=== PATIENT | male | born 1985 | race Caucasian/White ===

== ENCOUNTER 2017-02-04 13:43 | Emergency (ER) | payer SELFPAY ==
[~2017-02-04 13:43] MED LIST: AGM875T PO; AMOX500C2 PO; BENZ100C8 PO; BENZ200C25 PO; CIPR500T4 PO; CODE-54 PO; CYCL10TA9 PO; DICY20TA10 PO; DOXY100C2 PO; ESCI5TAB PO; FAMO-119 PO; FLT05NA16 NSEACH; HYDR25CA PO; HYOS0.1283 SL; INDO25CA PO; METH-53 PO; NAPR-243 PO; NAPR250T34 PO; ONDA8TAB13 PO; PRD20T PO; PRX10T PO; SCR1T1 PO; TRAM-21 PO; TRAM50TA2 PO; TRM50T PO; TRZ100T PO
--- OUTSIDE RECORDS SUMMARY | 2017-02-04 13:48 | XMS REPORT | Continuity of Care Document ---
Author Author [facility] Organization [facility] Address Unknown Phone Unavailable Care Team Providers Care Wire Photo Operator Name Role Phone SJ MARTELL DO PCP Insurance Providers Payer Name Policy Number Subscriber Name Relationship Work Comp [id number] Ravindra Quevedo 19 Self / Same As Patient Advance Directives Directive Response Recorded Date/Time Advance Directives No 08/08/14 8:51am Health Care Power of Hog Sticker No 08/08/14 8:51am Organ Donor Yes 08/08/14 8:51am Resuscitation Status Full Code 08/08/14 8:51am Problems Medical Problems Problem Onset Date Status Abdominal pain Unknown Active Nausea and vomiting Unknown Active Diarrhea Unknown Active Dehydration Unknown Active SUICIDAL IDEATION AND ATTEMPT Unknown Active Alcohol intoxication Unknown Active Sinusitis Unknown Active Sinusitis Unknown Active Spasm of back muscles Unknown Active Back pain Unknown Active Medications Medication Dose Route Sig Days/Qty Instructions Order Date Discontinued Date Status Indomethacin 1 Each PO THREE TIMES A DAY PRN 14 Qty 11/03/10 08/04/13 Discontinued Amoxicillin 2 Each PO THREE TIMES A DAY 14 Days 01/14/12 08/04/13 Discontinued Naproxen 1 Each PO TWICE A DAY PRN 20 Qty 01/14/12 08/04/13 Discontinued Cyclobenzaprine HCl (Flexeril) 1 Each PO Q8HR PRN 15 Qty FOR MUSCLE SPASMS 06/18/13 08/04/13 Discontinued Naproxen 1 Each PO TID PRN 20 Qty 06/18/13 08/04/13 Discontinued Paroxetine HCl 10 Mg PO NEEDED 30 Qty 08/04/13 01/13/14 Discontinued Trazodone HCl 50 Mg PO NEEDED 08/04/13 01/13/14 Discontinued Tramadol HCl 50 Mg PO EVERY 6 HOURS PRN 10 Qty 08/04/13 01/13/14 Discontinued Naproxen 1 Each PO TID PRN 10 Qty 08/04/13 01/13/14 Discontinued Ondansetron 8 Mg PO EVERY 4HRS PRN NAUSEA/VOMITING 10 Qty 01/13/14 Discontinued Escitalopram Oxalate 1 Each PO BEDTIME 30 Days 02/03/14 02/10/14 Discontinued Dicyclomine Hcl 20 Mg PO THREE TIMES A DAY PRN ABDOMINAL PAIN 60 Qty 05/05/14 Discontinued Dicyclomine Hcl 20 Mg PO THREE TIMES A DAY 20 Qty 05/05/14 07/24/14 Discontinued Sucralfate 1 Gm PO FOUR TIMES DAILY 120 Qty TAKE BEFORE EACH MEAL AND AT BEDTIME FOR STOMACH 05/05/14 Active Amoxicillin/Clavulanate K 1 Tab PO TWICE A DAY 30 Qty 07/01/14 Discontinued Fluticasone Propionate 2 Sprays NSEACH DAILY 1 Qty 07/01/14 Active Benzonatate (Tessalon Perles) 1 Each PO THREE TIMES A DAY PRN COUGH 30 Qty 07/01/14 07/24/14 Discontinued Cyclobenzaprine HCl (Flexeril) 1 Each PO Q8HR PRN 15 Qty 07/24/14 Discontinued Naproxen 1 Each PO THREE TIMES A DAY PRN PAIN 20 Qty 07/24/14 Active Tramadol Hcl 50 Mg PO EVERY 4HRS 20 Qty 07/24/14 Active Methocarbamol 2 Each PO DIRECTED PRN SPASMS 40 Qty 08/08/14 Active Acetaminophen/Codeine Phosphate 1-2 Tab PO Q 4-6 HOURS PRN PAIN 24 Qty NEEDED FOR PAIN 08/08/14 Active Social History Social History Problem Response Recorded Date/Time Alcohol Use Occasionally Uses 08/08/2014 8:51am Recreational Drug Use No 08/08/2014 8:51am Recent Foreign Travel No 08/08/2014 8:51am Recent Infectious Disease Exposure No 08/08/2014 8:51am Hospitalization with Isolation Denies 08/08/2014 8:51am Smoking Status Never a Smoker 08/08/2014 8:51am Query Response Start Date Stop Date Smoking Status Never a Smoker Hospital Discharge Instructions No hospital discharge instructions. Plan of Care No plan of care. Functional Status No functional status results. Allergies, Adverse Reactions, Alerts Allergen Type Severity Reaction Status Last Updated No Known Drug Allergies Active 11/03/10 Immunizations No immunization records. Vital Signs Acute Vital Signs Vital Response Date/Time Temperature (Fahrenheit) 98.1 degrees F (97.6 - 99.5) Temperature (Calculated Celsius) 36.61186 degrees C (36.4 - 37.5) Temperature Source Temporal Pulse Rate (adult) 70 bpm (60 - 90) Respiratory Rate 18 bpm (12 - 24) O2 Sat by Pulse Oximetry 95 % (88 - 100) Blood Pressure 149/98 mm Hg Pain Pain Intensity 8 Height (Feet) 6 feet Height (Inches) 1 inches Height (Calculated Centimeters) 185.029384 cm Weight (Pounds) 165 pounds Weight (Ounces) 2.0 oz Weight (Calculated Grams) 71051.003 gm Weight (Calculated Kilograms) 74.421960 kilograms Calculated BMI 21.77 Results Test Source Date Result Interp. Ref. Range Comments Acetaminophen Level February 03, 2014 3:16am < 10 UG/ML L 10.0-30.0 Alanine Aminotransferase (ALT/SGPT) May 05, 2014 7:50pm 38 U/L N 30-65 Albumin May 05, 2014 7:50pm 4.4 G/DL N 3.4-5.0 Alkaline Phosphatase May 05, 2014 7:50pm 114 U/L N 50-136 Amylase Level May 05, 2014 7:50pm 68 U/L N 25-115 Aspartate Amino Transf (AST/SGOT) May 05, 2014 7:50pm 16 U/L N 15-37 BUN/Creatinine Ratio May 05, 2014 7:50pm 7 - Basophils # (Auto) May 05, 2014 7:50pm 0.0 10^3/uL N 0.0-0.1 Basophils (%) (Auto) May 05, 2014 7:50pm 1 % N 0-10 Blood Urea Nitrogen May 05, 2014 7:50pm 8 MG/DL N 7-18 C-Reactive Protein January 13, 2014 9:15pm 0.4 MG/DL N 0.2-0.9 Calcium Level May 05, 2014 7:50pm 9.3 MG/DL N 8.5-10.1 Carbon Dioxide Level May 05, 2014 7:50pm 30 MMOL/L N 21-32 Chloride Level May 05, 2014 7:50pm 101 MMOL/L N 101-110 Creatinine May 05, 2014 7:50pm 1.2 MG/DL N 0.6-1.3 Eosinophils # (Auto) May 05, 2014 7:50pm 0.0 10^3/uL N 0.0-0.3 Eosinophils (%) (Auto) May 05, 2014 7:50pm 0 % N 0-10 Glucose Level May 05, 2014 7:50pm 98 MG/DL N 74-106 Hematocrit May 05, 2014 7:50pm 45 % N 40-54 Hemoglobin May 05, 2014 7:50pm 15.6 G/DL N 13.3-17.7 Lipase May 05, 2014 7:50pm 163 U/L N 73-393 Lymphocytes # (Auto) May 05, 2014 7:50pm 1.5 X 10^3 N 1.0-4.0 Lymphocytes (%) (Auto) May 05, 2014 7:50pm 22 % N 12-44 Mean Corpuscular Hemoglobin May 05, 2014 7:50pm 33 PG N 25-34 Mean Corpuscular Hemoglobin Concent May 05, 2014 7:50pm 34 G/DL N 32- 36 Mean Corpuscular Volume May 05, 2014 7:50pm 95 FL N 80-99 Mean Platelet Volume May 05, 2014 7:50pm 9.0 FL N 7.4-10.4 Monocytes # (Auto) May 05, 2014 7:50pm 0.6 X 10^3 N 0.0-1.0 Monocytes (%) (Auto) May 05, 2014 7:50pm 8 % N 0-12 Neutrophils # (Auto) May 05, 2014 7:50pm 4.9 X 10^3 N 1.8-7.8 Neutrophils (%) (Auto) May 05, 2014 7:50pm 69 % N 42-75 Platelet Count May 05, 2014 7:50pm 318 10^3/uL N 130-400 Potassium Level May 05, 2014 7:50pm 3.9 MMOL/L N 3.6-5.0 Red Blood Count May 05, 2014 7:50pm 4.79 10^6/uL N 4.35-5.85 Red Cell Distribution Width May 05, 2014 7:50pm 12.6 % N 10.0-14.5 Salicylates Level February 03, 2014 3:16am 1.3 MG/DL L 2.8-20.0 Sodium Level May 05, 2014 7:50pm 136 MMOL/L N 135-145 TSH [place] Testing February 03, 2014 3:16am 0.58 UIU/ML N 0.34-5.60 Total Bilirubin May 05, 2014 7:50pm 0.3 MG/DL N 0.0-1.0 Total Protein May 05, 2014 7:50pm 8.1 G/DL N 6.4-8.2 Ur Tricyclic Antidepressants Screen May 05, 2014 7:40pm NEGATIVE - Urine Amphetamines Screen May 05, 2014 7:40pm NEGATIVE - Urine Bacteria May 05, 2014 7:40pm NEGATIVE /HPF - Has specimen been collected/obtained? YSpecimen Description CLEAN CATCH Urine Barbiturates Screen May 05, 2014 7:40pm NEGATIVE - Urine Benzodiazepines Screen May 05, 2014 7:40pm NEGATIVE - Urine Bilirubin May 05, 2014 7:40pm NEGATIVE - Has specimen been collected/obtained? YSpecimen Description CLEAN CATCH Urine Casts May 05, 2014 7:40pm NONE /LPF - Has specimen been collected/obtained? YSpecimen Description CLEAN CATCH Urine Clarity May 05, 2014 7:40pm CLEAR - Has specimen been collected/obtained? YSpecimen Description CLEAN CATCH Urine Cocaine Screen May 05, 2014 7:40pm NEGATIVE - Urine Color May 05, 2014 7:40pm YELLOW - Has specimen been collected /obtained? YSpecimen Description CLEAN CATCH Urine Crystals May 05, 2014 7:40pm NONE /LPF - Has specimen been collected/obtained? YSpecimen Description CLEAN CATCH Urine Culture Indicated May 05, 2014 7:40pm NO - Has specimen been collected/obtained? YSpecimen Description CLEAN CATCH Urine Glucose (UA) May 05, 2014 7:40pm NEGATIVE - Has specimen been collected/obtained? YSpecimen Description CLEAN CATCH Urine Ketones May 05, 2014 7:40pm NEGATIVE - Has specimen been collected/obtained? YSpecimen Description CLEAN CATCH Urine Leukocyte Esterase May 05, 2014 7:40pm NEGATIVE - Has specimen been collected/obtained? YSpecimen Description CLEAN CATCH Urine Methamphetamines Screen May 05, 2014 7:40pm NEGATIVE - Urine Mucus May 05, 2014 7:40pm NEGATIVE /LPF - Has specimen been collected/obtained? YSpecimen Description CLEAN CATCH Urine Nitrite May 05, 2014 7:40pm NEGATIVE - Has specimen been collected/obtained? YSpecimen Description CLEAN CATCH Urine Opiates Screen May 05, 2014 7:40pm NEGATIVE - Urine Phencyclidine Screen May 05, 2014 7:40pm NEGATIVE - Urine Propoxyphene Screen May 05, 2014 7:40pm NEGATIVE - Urine Protein May 05, 2014 7:40pm NEGATIVE - Has specimen been collected/obtained? YSpecimen Description CLEAN CATCH Urine RBC May 05, 2014 7:40pm NONE /HPF - Has specimen been collected/obtained? YSpecimen Description CLEAN CATCH Urine Specific [place] May 05, 2014 7:40pm 1.015 L - Has specimen been collected/obtained? YSpecimen Description CLEAN CATCH Urine Squamous Epithelial Cells May 05, 2014 7:40pm RARE /HPF - Has specimen been collected/obtained? YSpecimen Description CLEAN CATCH Urine Urobilinogen May 05, 2014 7:40pm NORMAL MG/DL - Has specimen been collected/obtained? YSpecimen Description CLEAN CATCH Urine WBC May 05, 2014 7:40pm NONE /HPF - Has specimen been collected/obtained? YSpecimen Description CLEAN CATCH Urine pH May 05, 2014 7:40pm 8 - Has specimen been collected/ obtained? YSpecimen Description CLEAN CATCH White Blood Count May 05, 2014 7:50pm 7.1 10^3/uL N 4.3-11.0 Serum Alcohol February 03, 2014 3:16am 113 MG/DL H -5 Estimat Glomerular Filtration Rate May 05, 2014 7:50pm > 60 - GFR INTERPRETIVE DATA UNITS FOR ESTIMATED GFR (eGFR): mL/min/1.73 M2 REFERENCE RANGE FOR ESTIMATED GFR (eGFR) eGFR NORMAL eGFR >60 MODERATELY DECREASED eGFR 30-59 SEVERLY DECREASED eGFR 15-29 KIDNEY FAILURE <15 (OR DIALYSIS) Urine Oxycodone Screen May 05, 2014 7:40pm NEGATIVE - Urine Methadone Screen May 05, 2014 7:40pm NEGATIVE - Urine Cannabinoids Screen May 05, 2014 7:40pm NEGATIVE - Urine Buprenorphine May 05, 2014 7:40pm NEGATIVE - Urine RBC (Auto) May 05, 2014 7:40pm NEGATIVE - Has specimen been collected/obtained? YSpecimen Description CLEAN CATCH MRSA Screen Nasal February 03, 2014 5:40am MRSA not isolated Procedures No known history of procedures. Encounters Encounter Location Date/Time Departed Emergency Room [facility] 08/08/14 8:45am Departed Emergency Room [facility] 07/24/14 8:04am Recent Diagnosis
== END 2017-02-04 16:11 | disposition left against medical advice (07) ==
LOC: EDUNIT# 13:43 → ER 13:44
DX: M54.5 Low back pain (principal); Z53.21 Procedure and treatment not carried out due to patient leaving prior to being seen by health care provider

== ENCOUNTER 2017-06-10 19:03 | Emergency (ER) | payer SELFPAY ==
[~2017-06-10] VITALS: Ht 185.4 cm; Wt 79.4 kg
[2017-06-10] MEDS ORDERED: ORPHENADRINE 60 MG/2 ML (NORFLEX) AMP IM ONE (19:15)
[2017-06-10] MEDS ORDERED: KETOROLAC 60 MG/2 ML VIAL IM ONE (19:15)
[2017-06-10] MEDS ORDERED: CYCL5TAB PO (19:20)
[2017-06-10] MEDS ORDERED: PRD20T PO (19:20)
--- NOTE | 2017-06-10 19:21 | ED Back Pain ---
General Chief Complaint: Back Problems Stated Complaint: LOWER BACK PAIN Nursing Triage Note: LOWER BACK PAIN X2 WEEKS, CHRONIC LOWER BACK PAIN Nursing Sepsis Screen: No Definite Risk Source of Information: Patient Exam Limitations: No Limitations History of Present Illness Time Seen by Provider: 19:17 Initial Comments To ER with low back pain worse than usual for the past 2 weeks. Pain intermittently radiates down either of his legs. However, no fevers or chills or loss of bowel or bladder control. He denies any recent injury. He states he 's had this pain every day since quitting work at [employer] 2 years ago. He does not have a physician currently. Location: Lumbar Spine, Paraspinous Muscles Severity: Mild Modifying Factors: Worse With Movement Allergies and Home Medications Allergies Coded Allergies: No Known Drug Allergies (Unverified , 11/03/10) Constitutional: see HPI, No chills EENTM: see HPI Respiratory: no symptoms reported Cardiovascular: no symptoms reported Genitourinary: no symptoms reported Musculoskeletal: see HPI, back pain Skin: no symptoms reported Psychiatric/Neurological: No Symptoms Reported Past Dmbruyc-Pqxzdt-Fuzadh Hx Patient Social History Alcohol Use: Rarely Uses Recreational Drug Use: Yes Drug of Choice: XANAX Smoking Status: Never a Smoker 2nd Hand Smoke Exposure: No Recent Foreign Travel: No Contact w/Someone Who Travel: No Recent Infectious Disease Expo: No Recent Hopitalizations: No Immunizations Up To Date Tetanus Booster (TDap): Unknown PED Vaccines UTD: Yes Seasonal Allergies Seasonal Allergies: No Surgeries HX Surgeries: Yes (RIGHT NECK LYMPH NODE REMOVED AT AGE 3) Respiratory Hx Respiratory Disorders: No Cardiovascular Hx Cardiac Disorders: No Neurological Hx Neurological Disorders: No Reproductive System Hx Reproductive Disorders: No Sexually Transmitted Disease: No Genitourinary Hx Genitourinary Disorders: No Gastrointestinal Hx Gastrointestinal Disorders: Yes Gastrointestinal Disorders: Gastroesophageal Reflux Musculoskeletal Hx Musculoskeletal Disorders: No Musculoskeletal Disorders: Chronic Back Pain Endocrine Hx Endocrine Disorders: No HEENT HX ENT Disorders: No Cancer Hx Cancer: No Psychosocial Hx Psychiatric Problems: Yes (OVERDOSED ON XANAX AND HYDROCODONE IN PAST) Behavioral Health Disorders: Anxiety, Suicide Attempts, Depression Integumentary HX Skin/Integumentary Disorder: No Blood Transfusions Hx Blood Disorders: No Adverse Reaction to a Blood Tr: No Family Medical History Significant Family History: No Pertinent Family Hx Family Medial History: History of drug abuse 03 FATHER 09 BROTHER Physical Exam Vital Signs Vital Sign - Last 12Hours 06/10/17 19:13 Temp 98.4 Pulse 84 Resp 16 B/P (MAP) 122/89 Pulse Ox 99 O2 Delivery Room Air Capillary Refill : Less Than 3 Seconds General Appearance: No Apparent Distress, WD/WN HEENT: PERRL/EOMI, TMs Normal Respiratory: No Accessory Muscle Use, No Respiratory Distress Gastrointestinal: Normal Bowel Sounds, Non Tender, Soft Back: Normal Inspection, Other (tenderness to even light touch) Extremity: Normal Capillary Refill, Normal Inspection Neurologic/Psychiatric: Alert, Oriented x3, No Motor/Sensory Deficits Skin: Normal Color, Warm/Dry Comments Patient had an essentially unremarkable lumbar spine MRI in 2013 Progress/Results/Core Measures Results/Orders My Orders Orders - NIKITA MONSON APRN Ketorolac Injection (Toradol Injection) (06/10/17 19:15) Orphenadrine Injection (Norflex Injectio (06/10/17 19:15) Vital Signs/I&O Vital Sign - Last 12Hours 06/10/17 19:13 Temp 98.4 Pulse 84 Resp 16 B/P (MAP) 122/89 Pulse Ox 99 O2 Delivery Room Air Blood Pressure Mean: 100 Departure Impression Impression: Primary Impression: Back pain Disposition: 01 HOME, SELF-CARE Condition: Stable Departure-Patient Inst. Decision time for Depature: 19:19 Referrals: NO,LOCAL PHYSICIAN (PCP/Family) Primary Care Physician Patient Instructions: MANAGING YOUR CHRONIC PAIN Add. Discharge Instructions: 1. Follow-up with one of the physicians listed to evaluate and treat your pain 2. Return to ER for any concerns All discharge instructions reviewed with patient and/or family. Voiced understanding. Scripts Cyclobenzaprine HCl (Cyclobenzaprine HCl) 5 Mg Tablet 5 MG PO TID Y for PAIN-MODERATE, #21 TAB Prov: NIKITA MONSON APRN 06/10/17 Prednisone (Prednisone) 20 Mg Tab 40 MG PO DAILY for 4 Days, TAB Prov: NIKITA MONSON APRN 06/10/17 Work/School Note: Work Release Form Date Seen in the Emergency Department: Jun 10, 2017 Return to Work: Jun 11, 2017 NIKITA MONSON APRN Jun 10, 2017 19:21
[2017-06-10 19:23] VITALS: BP 122/89
== END 2017-06-10 19:23 | disposition home or self-care (01) ==
LOC: EDUNIT# 19:03 → ER 19:05
DX: M54.5 Low back pain (principal); F13.90 Sedative, hypnotic, or anxiolytic use, unspecified, uncomplicated; F41.9 Anxiety disorder, unspecified; Z90.5 Acquired absence of kidney; F32.9 Major depressive disorder, single episode, unspecified
CPT/HCPCS: 96372; 99284

== ENCOUNTER 2017-08-14 22:36 | Emergency (ER) | payer OTHER ==
[~2017-08-14] VITALS: Ht 182.9 cm; Wt 74.8 kg
[~2017-08-14 22:36] MED LIST changes: +CYCL5TAB PO
--- NOTE | 2017-08-14 23:28 | ED Abdominal Pain ---
General Chief Complaint: Abdominal/GI Problems Stated Complaint: ABDOMINAL PAIN,HEARTBURN Nursing Triage Note: MID ABDOMINAL PAIN, FEELS LIKE SOMETHING IN THROAT X2 WEEKS Sepsis Screen: No Definite Risk Source of Information: Patient Exam Limitations: No Limitations History of Present Illness Time Seen By Provider: 23:23 Initial Comments Patient present to ER by private conveyance with chief complaint of abdominal pain that is epigastric and right upper quadrant and nature that has been going on for 2 weeks of progressively worse. He has not sought any help for this yet. He has tried Tums and [place] with little improvement. He is not having history of GERD or heartburn. He denies trauma or other significant medical history. He has had nausea with vomiting a few times mostly clear liquid. He feels that food gets stuck in the middle of his throat sometimes has a hard time getting it down. His pain is worse with spicy foods or greasy foods and his Is out of his diet which helped a little. He has had no diarrhea or constipation had a bowel movement yesterday that was normal without any black tarry or blood appearance. Allergies and Home Medications Allergies Coded Allergies: No Known Drug Allergies (Unverified , 11/03/10) Home Medications No Active Prescriptions or Reported Meds Review of Systems Constitutional: No chills, dizziness, No fever, No malaise EENTM: No Ear Pain, No Mouth Pain Respiratory: Denies Cough, Denies Shortness of Air Cardiovascular: Denies Chest Pain, Denies Lightheadedness, Denies Palpitations , Denies Syncope Gastrointestinal: See HPI, Abdomen Distended, Abdominal Pain, Denies Constipated, Denies Diarrhea, Nausea, Poor Appetite, Vomiting Genitourinary: Denies Drainage Musculoskeletal: No back pain, No joint pain Skin: No pruritus, No rash Psychiatric/Neurological: Denies Headache, Denies Numbness, Denies Paresthesia Past Pjqjule-Kihvfz-Edfogj Hx Patient Social History Alcohol Use: Occasionally Uses Number of Drinks Today: 0 Alcohol Beverage of Choice: Beer Recreational Drug Use: No Drug of Choice: XANAX Smoking Status: Never a Smoker 2nd Hand Smoke Exposure: No Recent Foreign Travel: No Contact w/Someone Who Travel: No Recent Infectious Disease Expo: No Recent Hopitalizations: No Immunizations Up To Date Tetanus Booster (TDap): Unknown PED Vaccines UTD: Yes Seasonal Allergies Seasonal Allergies: No Surgeries History of Surgeries: Yes (RIGHT NECK LYMPH NODE REMOVED AT AGE 3) Respiratory History of Respiratory Disorde: No Cardiovascular History of Cardiac Disorders: No Neurological History of Neurological Disord: No Reproductive System Hx Reproductive Disorders: No Sexually Transmitted Disease: No Genitourinary History of Genitourinary Disor: No Gastrointestinal History of Gastrointestinal Di: Yes Gastrointestinal Disorders: Gastroesophageal Reflux Musculoskeletal History of Musculoskeletal Dis: Yes Musculoskeletal Disorders: Chronic Back Pain Endocrine History of Endocrine Disorders: No HEENT History of HEENT Disorders: No Cancer History of Cancer: No Psychosocial History of Psychiatric Problem: Yes (OVERDOSED ON XANAX AND HYDROCODONE IN PAST ) Behavioral Health Disorders: Anxiety, Suicide Attempts, Depression Integumentary History of Skin or Integumenta: No Blood Transfusions History of Blood Disorders: No Adverse Reaction to a Blood Tr: No Family Medical History Significant Family History: No Pertinent Family Hx Family Medial History: History of drug abuse 03 FATHER 09 BROTHER Physical Exam Vital Signs VS - Last 72 Hours, by Label 08/14/17 22:48 Temp 98.4 Pulse 72 Resp 16 B/P (MAP) 130/98 Pulse Ox 97 O2 Delivery Room Air Capillary Refill : Less Than 3 Seconds General Appearance: WD/WN, no apparent distress HEENT: PERRL/EOMI, pharynx normal Neck: non-tender, normal inspection Respiratory: chest non-tender, lungs clear, no respiratory distress Cardiovascular: normal peripheral pulses, regular rate, rhythm, no edema Peripheral Pulses: 2+ Radial Pulses (R), 2+ Radial Pulses (L) Gastrointestinal: normal bowel sounds, soft, tenderness (epigastric and Bill' s mildly positive right upper quadrant) Extremities: normal range of motion, non-tender, normal inspection, normal capillary refill Back: normal inspection, no CVA tenderness Neurologic/Psychiatric: alert, normal mood/affect, oriented x 3 Skin: normal color, warm/dry Progress/Results/Core Measures Results/Orders Lab Results Laboratory Tests Test 08/14/17 23:35 Range/Units White Blood Count 6.4 4.3-11.0 10^3/uL Red Blood Count 4.56 4.35-5.85 10^6/uL Hemoglobin 14.6 13.3-17.7 G/DL Hematocrit 43 40-54 % Mean Corpuscular Volume 95 80-99 FL Mean Corpuscular Hemoglobin 32 25-34 PG Mean Corpuscular Hemoglobin Concent 34 32-36 G/DL Red Cell Distribution Width 12.6 10.0-14.5 % Platelet Count 306 130-400 10^3/uL Mean Platelet Volume 8.7 7.4-10.4 FL Neutrophils (%) (Auto) 40 L 42-75 % Lymphocytes (%) (Auto) 45 H 12-44 % Monocytes (%) (Auto) 11 0-12 % Eosinophils (%) (Auto) 4 0-10 % Basophils (%) (Auto) 1 0-10 % Neutrophils # (Auto) 2.5 1.8-7.8 X 10^3 Lymphocytes # (Auto) 2.9 1.0-4.0 X 10^3 Monocytes # (Auto) 0.7 0.0-1.0 X 10^3 Eosinophils # (Auto) 0.3 0.0-0.3 10^3/uL Basophils # (Auto) 0.0 0.0-0.1 10^3/uL Urine Color YELLOW Urine Clarity CLEAR Urine pH 7 5-9 Urine Specific [place] 1.010 L 1.016-1.022 Urine Protein NEGATIVE NEGATIVE Urine Glucose (UA) NEGATIVE NEGATIVE Urine Ketones NEGATIVE NEGATIVE Urine Nitrite NEGATIVE NEGATIVE Urine Bilirubin NEGATIVE NEGATIVE Urine Urobilinogen NORMAL NORMAL MG/DL Urine Leukocyte Esterase NEGATIVE NEGATIVE Urine RBC (Auto) NEGATIVE NEGATIVE Urine RBC NONE /HPF Urine WBC NONE /HPF Urine Squamous Epithelial Cells RARE /HPF Urine Crystals NONE /LPF Urine Bacteria NEGATIVE /HPF Urine Casts NONE /LPF Urine Mucus NEGATIVE /LPF Urine Culture Indicated NO Sodium Level 140 135-145 MMOL/L Potassium Level 4.2 3.6-5.0 MMOL/L Chloride Level 107 98-107 MMOL/L Carbon Dioxide Level 25 21-32 MMOL/L Anion Gap 8 5-14 MMOL/L Blood Urea Nitrogen 14 7-18 MG/DL Creatinine 0.99 0.60-1.30 MG/DL Estimat Glomerular Filtration Rate > 60 BUN/Creatinine Ratio 14 Glucose Level 99 70-105 MG/DL Calcium Level 9.1 8.5-10.1 MG/DL Magnesium Level 2.1 1.8-2.4 MG/DL Total Bilirubin 0.3 0.1-1.0 MG/DL Aspartate Amino Transf (AST/SGOT) 19 5-34 U/L Alanine Aminotransferase (ALT/SGPT) 21 0-55 U/L Alkaline Phosphatase 79 40-136 U/L Total Protein 7.2 6.4-8.2 GM/DL Albumin 4.1 3.2-4.5 GM/DL Lipase 55 8-78 U/L Urine Opiates Screen NEGATIVE NEGATIVE Urine Oxycodone Screen NEGATIVE NEGATIVE Urine Methadone Screen NEGATIVE NEGATIVE Urine Propoxyphene Screen NEGATIVE NEGATIVE Urine Barbiturates Screen NEGATIVE NEGATIVE Ur Tricyclic Antidepressants Screen NEGATIVE NEGATIVE Urine Phencyclidine Screen NEGATIVE NEGATIVE Urine Amphetamines Screen NEGATIVE NEGATIVE Urine Methamphetamines Screen NEGATIVE NEGATIVE Urine Benzodiazepines Screen NEGATIVE NEGATIVE Urine Cocaine Screen NEGATIVE NEGATIVE Urine Cannabinoids Screen NEGATIVE NEGATIVE My Orders Orders - JESSIE PHEPLS Ct Abdomen/Pelvis Wo (08/14/17 23:24) Saline Lock/Iv-Start (08/14/17 23:24) Cbc With Automated Diff (08/14/17 23:24) Comprehensive Metabolic Panel (08/14/17 23:24) Drug Screen Stat (Urine) (08/14/17 23:24) Lipase (08/14/17 23:24) Magnesium (08/14/17 23:24) Ua Culture If Indicated (08/14/17 23:24) Lidocaine 2% Viscous 15 Ml (Xylocaine Vi (08/14/17 23:30) Antacid Suspension (Mylanta Suspension (08/14/17 23:30) Sucralfate Tablet (Carafate Tablet) (08/14/17 23:30) Medications Given in ED Current Medications Medications Dose Ordered Sig/Ingris Route Start Time Stop Time Status Last Admin Dose Admin Al Hydrox/Mg Hydrox/Simethicone 30 ml ONCE ONCE PO 08/14/17 23:30 08/14/17 23:31 DC 08/14/17 23:37 30 ML Lidocaine HCl 15 ml ONCE ONCE PO 08/14/17 23:30 08/14/17 23:31 DC 08/14/17 23:37 15 ML Sucralfate 1 gm ONCE ONCE PO 08/14/17 23:30 08/14/17 23:31 DC 08/14/17 23:37 1 GM Vital Signs/I&O Vital Sign - Last 12Hours 08/14/17 22:48 Temp 98.4 Pulse 72 Resp 16 B/P (MAP) 130/98 Pulse Ox 97 O2 Delivery Room Air Blood Pressure Mean: 109 Diagnostic Imaging Diagonstic Imaging: CT Plain Films/CT/US/NM/MRI: abdomen, pelvis Comments Systems is decompressed without significant distention. There is a thickened appearance of the stomach wall. Indeterminant etiology this can her present thickening of the stomach wall related to an inflammatory change versus and nondistended stomach. Incidentally the stomach is not significantly distended. There is high-density material seen in the lumen of his distal esophagus and stomach could represent some oral contrast. Decompressed stomach with thickened appearance to stomach wall was a nonspecific finding and be a variation of normal for Cisz gastric inflammation. Fat adjacent to the stomach is normal was noticed inflammatory reaction surrounding the stomach. No CT evidence of cholelithiasis. No significant bile duct dilatation. Gallbladder is decompressed. Nonobstructing nephrolith left kidney. Calcifications within the pelvis or outside the course of the normal ureter and are consistent with vascular phleboliths. Normal appendix. Reviewed: Reviewed by Me Departure Impression Impression: Primary Impression: Epigastric pain Additional Impression: Difficulty swallowing solids Disposition: 01 HOME, SELF-CARE Condition: Stable Departure-Patient Inst. Decision time for Depature: 01:36 Referrals: NO,LOCAL PHYSICIAN (PCP/Family) Primary Care Physician Patient Instructions: Gastritis (DC) Add. Discharge Instructions: We will start you on 2 medicines to help reduce the acid and help your stomach heal. Take the Carafate 4 times a day for the next 2 weeks and take the omeprazole daily for the next month. Plan on establishing care with a primary care physician to get referral to gastroenterology for appropriate workup that may include a scope of your abdomen. If you start having fevers or intractable nausea and vomiting you should return to the ER. All discharge instructions reviewed with patient and/or family. Voiced understanding. Scripts Omeprazole (Omeprazole) 20 Mg Capsule.dr 20 MG PO DAILY for 30 Days, #30 CAP 0 Refills Prov: JESSIE PHELPS 08/15/17 Sucralfate (Carafate) 1 Gm Tablet 1 GM PO QIDACHS for 14 Days, #56 TAB 0 Refills Prov: JESSIE PHELPS 08/15/17 Copy Copies To 1: AUGUSTA BRINK TITUS J Aug 14, 2017 23:28
[2017-08-14] MEDS ORDERED: SUCRALFATE 1 GM (CARAFATE) TAB PO ONE (23:30)
[2017-08-14] MEDS ORDERED: LIDOCAINE 2% VISCOUS 15 ML UDC PO ONE (23:30)
[2017-08-14] MEDS ORDERED: ANTACID SUSP 30 ML UDC (MYLANTA) PO ONE (23:30)
[2017-08-14 23:42] LABS: BASOPHILS % (AUTO) 1 % (0-10); BILIRUBIN,URINE NEGATIVE (NEGATIVE); EOSINOPHILS # (AUTO) 0.3 10^3/uL (0.0-0.3); EOSINOPHILS % (AUTO) 4 % (0-10); KETONES,URINE NEGATIVE (NEGATIVE); LEUKOCYTE ESTERASE ,URINE NEGATIVE (NEGATIVE); LYMPHOCYTES # (AUTO) 2.9 X 10^3 (1.0-4.0); LYMPHOCYTES % (AUTO) 45 % (12-44); MEAN CORPUSCULAR HEMOGLOBIN 32 PG (25-34); MEAN CORPUSCULAR HGB CONC 34 G/DL (32-36); MEAN CORPUSCULAR VOLUME 95 FL (80-99); MEAN PLATELET VOLUME 8.7 FL (7.4-10.4); MONOCYTES # (AUTO) 0.7 X 10^3 (0.0-1.0); MONOCYTES % (AUTO) 11 % (0-12); NEUTROPHILS # (AUTO) 2.5 X 10^3 (1.8-7.8); NEUTROPHILS % (AUTO) 40 % (42-75); NITRITE,URINE NEGATIVE (NEGATIVE); PH,URINE 7 (5-9); PLATELET COUNT 306 10^3/uL (130-400); PROTEIN,URINE NEGATIVE (NEGATIVE); RED BLOOD COUNT 4.56 10^6/uL (4.35-5.85); RED CELL DISTRIBUTION WIDTH 12.6 % (10.0-14.5); UROBILINOGEN,URINE NORMAL (NORMAL); WHITE BLOOD COUNT 6.4 10^3/uL (4.3-11.0)
[2017-08-14 23:49] LABS: SQUAMOUS EPITHELIAL CELL,UR RARE /HPF
[2017-08-15 00:02] LABS: ALANINE AMINOTRANSFERASE 21 U/L (0-55); ALBUMIN 4.1 GM/DL (3.2-4.5); ANION GAP 8 MMOL/L (5-14); ASPARTATE AMINO TRANSFERASE 19 U/L (5-34); BILIRUBIN,TOTAL 0.3 MG/DL (0.1-1.0); BLOOD UREA NITROGEN 14 MG/DL (7-18); BUN/CREATININE RATIO 14; CALCIUM 9.1 MG/DL (8.5-10.1); CARBON DIOXIDE 25 MMOL/L (21-32); CHLORIDE 107 MMOL/L (98-107); CREATININE SERUM 0.99 MG/DL (0.60-1.30); GFR ESTIMATED > 60; GLUCOSE 99 MG/DL (70-105); LIPASE 55 U/L (8-78); MAGNESIUM 2.1 MG/DL (1.8-2.4); POTASSIUM 4.2 MMOL/L (3.6-5.0); SODIUM 140 MMOL/L (135-145); TOTAL PROTEIN 7.2 GM/DL (6.4-8.2)
[2017-08-15] MEDS ORDERED: SUCR1TAB36 PO (01:39)
[2017-08-15] MEDS ORDERED: OMEP20CA12 PO (01:39)
[2017-08-15 01:56] VITALS: BP 120/84
--- NOTE | 2017-08-15 06:39 | Diagnostic Imaging Report ---
PROCEDURE: CT abdomen and pelvis without contrast. TECHNIQUE: Multiple contiguous axial images were obtained through the abdomen and pelvis without the use of intravenous contrast. INDICATION: Abdominal pain which is most pronounced after eating. Comparison is made to examination of 02/10/2014. Unenhanced images of the liver and spleen reveal no focal abnormality. There is high-density material within the distal esophagus and nondistended stomach. No pancreatic or adrenal gland abnormality is identified. There is a nonobstructing calculus measuring 0.3 cm in diameter within the midportion of the left kidney. Kidneys otherwise unremarkable. There is no evidence of free intraperitoneal fluid in the abdomen or pelvis. No pathologically enlarged adenopathy is seen. There is no evidence of appendiceal inflammation. IMPRESSION: Nonobstructing central calculus in the left kidney without other evidence of acute abnormality. There is high-density material within the distal esophagus and stomach which may be related to ingested medication or other material. Dictated by: Dictated on workstation # [id number]
== END 2017-08-15 01:53 | disposition home or self-care (01) ==
LOC: EDUNIT# 22:36 → ER 22:38
DX: F41.9 Anxiety disorder, unspecified; K21.9 Gastro-esophageal reflux disease without esophagitis; Z91.5 Personal history of self-harm; R10.13 Epigastric pain; F32.9 Major depressive disorder, single episode, unspecified; R13.10 Dysphagia, unspecified
CPT/HCPCS: 36415; 74176; 80053; 80306; 81000; 83690; 83735; 85025

== ENCOUNTER → 2017-08-28 | Outpatient (CLI) | payer OTHER ==
[~2017-08-28] MED LIST changes: +OMEP20CA12 PO; +SUCR1TAB36 PO
--- NOTE | 2017-08-28 14:57 | Diagnostic Imaging Report ---
PROCEDURE: CT chest without contrast. TECHNIQUE: Multiple contiguous axial images were obtained through the chest without the use of intravenous contrast. INDICATION: Odynophagia with esophageal irritation. FINDINGS: There does appear to be a mild sliding-type hiatal hernia with mild mural thickening of the distal esophagus. There is no evidence of mediastinal inflammation or fluid collection. The unenhanced images of the mediastinum and anabel reveal no pathologically enlarged adenopathy. There is no significant pleural or pericardial fluid. The lungs are clear bilaterally. IMPRESSION: Small sliding-type hiatal hernia with mild mural thickening of the distal esophagus. This may be related to esophagitis. Other considerations such as Purdy's esophagus cannot be excluded and clinical correlation with possible endoscopic visualization would be of use. Dictated by: Dictated on workstation # [id number]
== END ==
LOC: RAD 14:09
PROVIDERS: ATTEND Pediatrics
DX: K44.9 Diaphragmatic hernia without obstruction or gangrene; K22.9 Disease of esophagus, unspecified
CPT/HCPCS: 71250

== ENCOUNTER 2017-09-19 05:31 | Outpatient (CLI) | payer OTHER ==
[~2017-09-19] VITALS: Ht 182.9 cm; Wt 74.8 kg
== END 2017-09-19 13:50 ==
LOC: PREOP 05:31
PROVIDERS: ATTEND Surgery
DX: Z01.818 Encounter for other preprocedural examination (principal); R13.10 Dysphagia, unspecified

== ENCOUNTER 2017-09-26 07:51 | Day surgery (SDC) | payer OTHER ==
[2017-09-26 08:05] VITALS: BP 129/80
[2017-09-26] MEDS ORDERED: NS IV 500 ML 500 ML IV PRN (08:15)
[2017-09-26] MEDS ORDERED: HURRICAINE EXT TUBE (BENZOCAINE) XX PRN (08:15)
[2017-09-26] MEDS ORDERED: HURRICAINE EXT TUBE (BENZOCAINE) ONE (09:43)
[2017-09-26] MEDS ORDERED: MIDAZOLAM 2 MG/2 ML (VERSED) VIAL ONE ×5 (09:43→09:54)
[2017-09-26] MEDS ORDERED: fentaNYL INJECTION 100 MCG/2 ML AMP ONE ×2 (09:43→09:52)
[2017-09-26] MEDS: MIDAZOLAM 2 MG/2 ML (VERSED) VIAL IVP PRN ×5 (09:47→09:59)
[2017-09-26] MEDS: fentaNYL INJECTION 100 MCG/2 ML AMP IVP PRN ×4 (09:48→09:58)
--- NOTE | 2017-09-26 10:19 | Conscious Sedation/ASA ---
Conscious Sedation Pre-Proced Time Reviewed: 09:36 ASA Class: 2 Airway Mallampati Classification: (burns paiute appropriate class) I. II. III, IV Lungs Heart ASA score ASA 1: a normal healthy patient ASA 2: a patient with a mild systemic disease (mid diabetes, controlled hypertension, obesity ASA 3: a patient with a severe systemic disease that limits activity (angina , COPD, prior Myocardial infarction) ASA 4: a patient with an incapacitating disease that is a constant threat to life (CHF, renal failure) ASA 5: a moribund patient not expected to survive 24 hrs. (ruptured aneurysm) ASA 6: a declared brain patient whose organs are being harvested. For emergent operations, add the letter E after the classification Grade 1 Sedation Plan: Discussed options with patient/fam Note The patient is an appropriate candidate to undergo the planned procedure, sedation, and anesthesia. The patient immediately re-assessed prior to indication. JAH RIGGS MD Sep 26, 2017 10:19 am
--- NOTE | 2017-09-26 10:19 | History & Physicial ---
History of Present Illness History of Present Illness Reason for visit/HPI to undergo an upper endoscopy with possible balloon dilatation, to address ongoing dysphagia. Date of Admission Date Seen by Provider: Sep 26, 2017 Time Seen by Provider: 09:35 I consulted on this patient on 09/26/17 10:16 Attending Physician Jah Montague MD Admitting Physician Rose Mary Tamayo MD Consult Allergies and Home Medications Allergies Coded Allergies: No Known Drug Allergies (Unverified , 09/19/17) Home Medications Omeprazole 20 Mg Capsule.dr, 20 MG PO DAILY for 30 Days, #30 Ref 0 Prescribed by: JESSIE PHELPS on 08/15/17 0139 Sucralfate 1 Gm Tablet, 1 GM PO QIDACHS for 14 Days, #56 Ref 0 Prescribed by: JESSIE PHELPS on 08/15/17 0139 Past Hxctlea-Pkyowi-Uapwmp Hx Patient Social History Marrital Status: single Employed/Student: employed Alcohol Use: Occasionally Uses Number of Drinks Today: AA Alcohol Beverage of Choice: Beer Recreational Drug Use: No Drug of Choice: XANAX Smoking Status: Never a Smoker 2nd Hand Smoke Exposure: No Recent Foreign Travel: No Contact w/other who traveled: No Recent Hopitalizations: No Recent Infectious Disease Expo: No Immunizations Up To Date Tetanus Booster (TDap): Unknown Pediatric: Yes Seasonal Allergies Seasonal Allergies: No Surgeries Yes (RIGHT NECK LYMPH NODE REMOVED AT AGE 3) Respiratory No Cardiovascular No Neurological No Reproductive System Hx Reproductive Disorders: No Sexually Transmitted Disease: No HIV/AIDS: No Genitourinary No Gastrointestinal Yes Gastroesophageal Reflux Musculoskeletal Yes Chronic Back Pain Endocrine History of Endocrine Disorders: No HEENT History of HEENT Disorders: No Loss of Vision: Bilateral Hearing Impairment: Denies Cancer No Psychosocial History of Psychiatric Problem: Yes (OVERDOSED ON XANAX AND HYDROCODONE IN PAST ) Behavioral Health Disorders: Anxiety, Suicide Attempts Integumentary History of Skin or Integumenta: No Blood Transfusions History of Blood Disorders: No Adverse Reaction to a Blood Tr: No Family Medical History Significant Family History: No Pertinent Family Hx Family Hx: History of drug abuse 03 FATHER 09 BROTHER Constitutional: no symptoms reported EENTM: no symptoms reported Respiratory: no symptoms reported Cardiovascular: no symptoms reported Gastrointestinal: see HPI Genitourinary: no symptoms reported Musculoskeletal: no symptoms reported Skin: no symptoms reported Psychiatric/Neurological: No Symptoms Reported Physical Exam Vital Signs Vital Sign - Last 12Hours 09/26/17 08:05 Temp 98.1 Pulse 65 Resp 18 B/P (MAP) 129/80 Pulse Ox 98 O2 Delivery Room Air Capillary Refill : General Appearance: No Apparent Distress HEENT: Normal ENT Inspection Neck: Normal Inspection Respiratory: Lungs Clear Cardiovascular: Regular Rate, Rhythm Gastrointestinal: Non Tender, Soft Back: Normal Inspection Extremity: Normal Inspection Neurologic/Psychiatric: Alert, Oriented x3 Assessment/Plan Assessment and Plan young man with ongoing dysphagia. Most likely peptic stricture the culprit. Endoscopy with possible balloon dilatation discussed. Problems: JAH MONTAGUE MD Sep 26, 2017 10:18 am
--- NOTE | 2017-09-26 10:22 | Endo Procedure Record ---
Endo Procedure Report Date of Procedure Sep 26, 2017 Surgeon (s) JAH RIGGS MD Post Procedure/Op Diagnosis distal esophageal stricture. Antral erosions. Procedure Performed upper GI endoscopy with brush cytology of esophageal stricture Balloon dilatation of esophageal stricture Description of Procedure Anesthesia Type: Conscious Sedation Specimen(s) collected/removed cytology from esophageal stricture Description of the Procedure Indication for procedure: This gentleman reported ongoing dysphagia over the past several months, preceded by symptoms of reflux disease. He was offered an upper endoscopy with an intent to perform balloon dilatation. Informed consent was obtained after reviewing the procedure in detail. Description of the procedure: He was placed in left lateral decubitus position and his vital signs were monitored. Conscious sedation was achieved using Versed and fentanyl. The flexible gastroscope was introduced down the esophagus , past the stomach, into the proximal duodenum. Findings: Esophagus: A smooth, concentric and slightly inflamed stricture at the distal esophagus, possibly of peptic etiology. [place] cytology was obtained to rule out dysplasia and the stricture dilated to 20 mm using a balloon. Stomach: A few, shallow erosions were found at the antrum. Duodenum: Normal. He tolerated the procedure well and was taken back to the nursing area in a stable condition. Impression: Dysphagia due to distal esophageal peptic stricture. Balloon dilatation completed. Copies To: AKIRA ESPINOZA MD, XAVIER M MD Sep 26, 2017 10:22 am
--- NOTE | 2017-09-26 10:23 | Discharge Inst-Simple/Standard ---
Discharge Inst-Standard Discharge Medications New, Converted or Re-Newed RX: Other Patient Instructions/Follow Up Plan of Care/Instructions/FU: increase omeprazole to twice a day. To call my office if he has any recurrent symptoms Activity as Tolerated: Yes Discharge Diet: No Restrictions JAH RIGGS MD Sep 26, 2017 10:23 am
[2017-09-26 10:35] VITALS: BP 129/83
[2017-09-26 11:05] VITALS: BP 137/88
== END 2017-09-26 11:05 | disposition home or self-care (01) ==
LOC: ENDO 07:51
PROVIDERS: ATTEND Surgery
DX: K22.2 Esophageal obstruction (principal); K25.9 Gastric ulcer, unspecified as acute or chronic, without hemorrhage or perforation
CPT/HCPCS: 87101

== ENCOUNTER 2017-11-10 06:50 | Emergency (ER) | payer SELFPAY ==
[~2017-11-10] VITALS: Ht 185.4 cm; Wt 79.4 kg
--- OUTSIDE RECORDS SUMMARY | 2017-11-10 06:56 | XMS REPORT | Continuity of Care Document ---
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
[2017-11-10] MEDS ORDERED: NS IV 1000 ML 1,000 ML IV SCH (07:15)
[2017-11-10] MEDS ORDERED: ONDANSETRON 4 MG/2 ML (SDV) Z0FRAN IVP ONE (07:15)
[2017-11-10 07:20] LABS: BASOPHILS % (AUTO) 0 % (0-10); EOSINOPHILS % (AUTO) 0 % (0-10); LYMPHOCYTES # (AUTO) 0.5 X 10^3 (1.0-4.0); LYMPHOCYTES % (AUTO) 3 % (12-44); MEAN CORPUSCULAR HEMOGLOBIN 32 PG (25-34); MEAN CORPUSCULAR HGB CONC 34 G/DL (32-36); MEAN CORPUSCULAR VOLUME 94 FL (80-99); MEAN PLATELET VOLUME 8.7 FL (7.4-10.4); MONOCYTES # (AUTO) 0.8 X 10^3 (0.0-1.0); MONOCYTES % (AUTO) 6 % (0-12); NEUTROPHILS # (AUTO) 12.8 X 10^3 (1.8-7.8); NEUTROPHILS % (AUTO) 91 % (42-75); PLATELET COUNT 356 10^3/uL (130-400); RED BLOOD COUNT 4.96 10^6/uL (4.35-5.85); RED CELL DISTRIBUTION WIDTH 12.5 % (10.0-14.5); WHITE BLOOD COUNT 14.1 10^3/uL (4.3-11.0)
--- NOTE | 2017-11-10 07:20 | ED Abdominal Pain ---
General Stated Complaint: VOMITING NO VOICE WEAK Source of Information: Patient Exam Limitations: No Limitations History of Present Illness Time Seen By Provider: 07:14 Initial Comments This 32-year-old white male presents with cough, congestion, nausea, and vomiting that has been present for last 24 hours. The patient denies associated diarrhea, dysuria, fever or chill, productive cough, associated headache or stiff neck. Past medical history of significance includes esophageal stricture requiring bougie dilatation 2 weeks ago. Patient normally drinks a 12 pack of alcohol daily. He has not consumed alcohol for 2 weeks following his esophageal dilatation. Patient denies hematemesis or black or tarry stools. Patient denies significant abdominal or chest discomfort. Patient has been able to swallow without difficulty. The patient has similar flu-type symptoms to a number of his coworkers at [facility] [employer]. Allergies and Home Medications Allergies Coded Allergies: No Known Drug Allergies (Unverified , 09/19/17) Home Medications Omeprazole 20 Mg Capsule.dr, 20 MG PO DAILY for 30 Days, #30 Ref 0 Prescribed by: JESSIE PHELPS on 08/15/17 0139 Sucralfate 1 Gm Tablet, 1 GM PO QIDACHS for 14 Days, #56 Ref 0 Prescribed by: JESSIE PHELPS on 08/15/17 0139 Review of Systems Constitutional: No chills, No fever EENTM: No Blurred Vision Respiratory: See HPI, Cough, Denies SOA With Exertion Cardiovascular: Denies Chest Pain Gastrointestinal: Denies Abdomen Distended, Abdominal Pain, Denies Blood Streaked Stools, Denies Diarrhea, Nausea, Denies Rectal Bleeding, Vomiting Genitourinary: Denies Burning, Denies Frequency Musculoskeletal: No back pain Skin: No change in color, No rash Psychiatric/Neurological: Other (significant alcohol intake) Endocrine: No Symptoms Reported Hematologic/Lymphatic: No Symptoms Reported Past Laulful-Dwnwuy-Pzkdwr Hx Patient Social History Alcohol Beverage of Choice: Beer (12 pack a day) Drug of Choice: XANAX 2nd Hand Smoke Exposure: No Recent Foreign Travel: No Contact w/Someone Who Travel: No Recent Hopitalizations: No Immunizations Up To Date Tetanus Booster (TDap): Unknown PED Vaccines UTD: Yes Seasonal Allergies Seasonal Allergies: No Surgeries History of Surgeries: Yes (RIGHT NECK LYMPH NODE REMOVED AT AGE 3) Respiratory History of Respiratory Disorde: No Cardiovascular History of Cardiac Disorders: No Neurological History of Neurological Disord: No Reproductive System Hx Reproductive Disorders: No Sexually Transmitted Disease: No HIV/AIDS: No Genitourinary History of Genitourinary Disor: No Gastrointestinal History of Gastrointestinal Di: Yes Gastrointestinal Disorders: Gastroesophageal Reflux Musculoskeletal History of Musculoskeletal Dis: Yes Musculoskeletal Disorders: Chronic Back Pain Endocrine History of Endocrine Disorders: No HEENT History of HEENT Disorders: No Loss of Vision: Bilateral Hearing Impairment: Denies Cancer History of Cancer: No Psychosocial History of Psychiatric Problem: Yes (OVERDOSED ON XANAX AND HYDROCODONE IN PAST ) Behavioral Health Disorders: Anxiety, Suicide Attempts Integumentary History of Skin or Integumenta: No Blood Transfusions History of Blood Disorders: No Adverse Reaction to a Blood Tr: No Reviewed Nursing Assessment Reviewed/Agree w Nursing PMH: Yes Family Medical History Significant Family History: No Pertinent Family Hx Family Medial History: History of drug abuse 03 FATHER 09 BROTHER Physical Exam Vital Signs VS - Last 72 Hours, by Label 11/10/17 07:10 Temp 98.4 Pulse 104 Resp 18 B/P (MAP) 133/88 (103) Pulse Ox 100 Capillary Refill : General Appearance: WD/WN, no apparent distress HEENT: normal ENT inspection Neck: full range of motion, normal inspection Respiratory: lungs clear, normal breath sounds Cardiovascular: normal peripheral pulses, regular rate, rhythm Gastrointestinal: normal bowel sounds, non tender, soft, no organomegaly Extremities: normal range of motion, non-tender, normal inspection Back: normal inspection Neurologic/Psychiatric: no motor/sensory deficits, alert, normal mood/affect Skin: normal color Progress/Results/Core Measures Results/Orders Lab Results Laboratory Tests Test 11/10/17 07:10 Range/Units White Blood Count 14.1 H 4.3-11.0 10^3/uL Red Blood Count 4.96 4.35-5.85 10^6/uL Hemoglobin 15.8 13.3-17.7 G/DL Hematocrit 47 40-54 % Mean Corpuscular Volume 94 80-99 FL Mean Corpuscular Hemoglobin 32 25-34 PG Mean Corpuscular Hemoglobin Concent 34 32-36 G/DL Red Cell Distribution Width 12.5 10.0-14.5 % Platelet Count 356 130-400 10^3/uL Mean Platelet Volume 8.7 7.4-10.4 FL Neutrophils (%) (Auto) 91 H 42-75 % Lymphocytes (%) (Auto) 3 L 12-44 % Monocytes (%) (Auto) 6 0-12 % Eosinophils (%) (Auto) 0 0-10 % Basophils (%) (Auto) 0 0-10 % Neutrophils # (Auto) 12.8 H 1.8-7.8 X 10^3 Lymphocytes # (Auto) 0.5 L 1.0-4.0 X 10^3 Monocytes # (Auto) 0.8 0.0-1.0 X 10^3 Eosinophils # (Auto) 0.0 0.0-0.3 10^3/uL Basophils # (Auto) 0.0 0.0-0.1 10^3/uL Neutrophils % (Manual) 86 % Lymphocytes % (Manual) 3 % Monocytes % (Manual) 6 % Band Neutrophils 5 % Toxic Granulation 2+ Blood Morphology Comment NORMAL Sodium Level 140 135-145 MMOL/L Potassium Level 4.9 3.6-5.0 MMOL/L Chloride Level 104 98-107 MMOL/L Carbon Dioxide Level 26 21-32 MMOL/L Anion Gap 10 5-14 MMOL/L Blood Urea Nitrogen 15 7-18 MG/DL Creatinine 1.23 0.60-1.30 MG/DL Estimat Glomerular Filtration Rate > 60 BUN/Creatinine Ratio 12 Glucose Level 129 H 70-105 MG/DL Calcium Level 9.6 8.5-10.1 MG/DL Total Bilirubin 0.3 0.1-1.0 MG/DL Aspartate Amino Transf (AST/SGOT) 15 5-34 U/L Alanine Aminotransferase (ALT/SGPT) 18 0-55 U/L Alkaline Phosphatase 102 40-136 U/L Total Protein 8.0 6.4-8.2 GM/DL Albumin 4.5 3.2-4.5 GM/DL Lipase 26 8-78 U/L My Orders Orders - JULI MORRIS MD Cbc With Automated Diff (11/10/17 07:12) Comprehensive Metabolic Panel (11/10/17 07:12) Lipase (11/10/17 07:12) Chest 1 View, Ap/Pa Only (11/10/17 07:12) Ondansetron Injection (Zofran Injectio (11/10/17 07:15) Ns Iv 1000 Ml (Sodium Chloride 0.9%) (11/10/17 07:15) Manual Differential (11/10/17 07:10) Medications Given in ED Current Medications Medications Dose Ordered Sig/Ingris Route Start Time Stop Time Status Last Admin Dose Admin Ondansetron HCl 4 mg ONCE ONCE IVP 11/10/17 07:15 11/10/17 07:16 DC 11/10/17 07:15 4 MG Vital Signs/I&O Vital Sign - Last 12Hours 11/10/17 07:10 Temp 98.4 Pulse 104 Resp 18 B/P (MAP) 133/88 (103) Pulse Ox 100 Progress Note : Time: 08:23 Progress Note Patient's laboratory evaluation included a leukocytosis with 2+ toxic granulations. I reexamined the patient who is improved following the IV fluids in the IV Zofran. The patient demonstrated no significant findings on thoracoabdominal exam. His lungs remained clear. His abdomen demonstrated no remarkable tenderness. I believe that this is a viral syndrome which he has acquired from his coworkers. To be cautious, however, I asked him to take a day to recover at home with clear liquids and more Zofran as needed. I asked him to return to the emergency department today if his symptoms recurred. I asked him to follow-up with his primary care physician tomorrow. Departure Impression Impression: Primary Impression: Gastroenteritis Disposition: 01 HOME, SELF-CARE Condition: Improved Departure-Patient Inst. Decision time for Depature: 08:51 Referrals: AKIRA ESPINOZA MD (PCP/Family) Primary Care Physician Patient Instructions: [id number] Add. Discharge Instructions: Clear liquids and rest today. Zofran for nausea. Return of any problems. Close follow-up with your doctor tomorrow if symptoms unresolved. JULI MORRIS MD Nov 10, 2017 07:20
[2017-11-10 07:46] LABS: ALANINE AMINOTRANSFERASE 18 U/L (0-55); ALBUMIN 4.5 GM/DL (3.2-4.5); ANION GAP 10 MMOL/L (5-14); ASPARTATE AMINO TRANSFERASE 15 U/L (5-34); BILIRUBIN,TOTAL 0.3 MG/DL (0.1-1.0); BLOOD UREA NITROGEN 15 MG/DL (7-18); BUN/CREATININE RATIO 12; CALCIUM 9.6 MG/DL (8.5-10.1); CARBON DIOXIDE 26 MMOL/L (21-32); CHLORIDE 104 MMOL/L (98-107); CREATININE SERUM 1.23 MG/DL (0.60-1.30); GFR ESTIMATED > 60; GLUCOSE 129 MG/DL (70-105); LIPASE 26 U/L (8-78); POTASSIUM 4.9 MMOL/L (3.6-5.0); SODIUM 140 MMOL/L (135-145)
[2017-11-10 08:16] LABS: BAND NEUTROPHILS 5 %; LYMPHOCYTES % (MANUAL) 3 %; NEUTROPHILS % (MANUAL) 86 %
--- NOTE | 2017-11-10 08:22 | Diagnostic Imaging Report ---
INDICATION: Nausea, vomiting, weakness.. TECHNIQUE: Single view chest 8:13 AM. CORRELATION STUDY: 05/02/2015 FINDINGS: The heart size, mediastinal configuration and pulmonary vascularity are within normal limits. Very slight increased markings lung base could reflect minimal atelectasis. No definitive consolidating infiltrate. IMPRESSION: 1. Negative for acute cardiopulmonary abnormality. Dictated by: Dictated on workstation # [id number]
[2017-11-10 09:06] VITALS: BP 133/88
== END 2017-11-10 09:10 | disposition home or self-care (01) ==
LOC: EDUNIT# 06:50 → ER 06:52
DX: K52.9 Noninfective gastroenteritis and colitis, unspecified (principal); K21.9 Gastro-esophageal reflux disease without esophagitis; F41.9 Anxiety disorder, unspecified; Z91.5 Personal history of self-harm
CPT/HCPCS: 36415; 71010; 80053; 83690; 85007; 85027

== ENCOUNTER 2017-11-16 07:16 | Emergency (ER) | payer SELFPAY ==
[~2017-11-16] VITALS: Ht 185.4 cm; Wt 74.8 kg
--- OUTSIDE RECORDS SUMMARY | 2017-11-16 07:22 | XMS REPORT | Continuity of Care Document ---
Author Author [employer] Organization [facility] Address Unknown Phone Unavailable Care Team Providers Care App[employer] Zig[employer] Name Role Phone [employer] Unavailable Unavailable Problems Medications Allergies, Adverse Reactions, Alerts Immunizations Results Vital Signs Encounters Procedures Plan of Care Social History Assessment and Plan Family History Value Date Source Advance Directives Order Name Results Value Date Source
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
[2017-11-16] MEDS ORDERED: LACTATED RINGERS 1,000 ML IV ONE (08:51)
[2017-11-16] MEDS ORDERED: ONDANSETRON 4 MG/2 ML (SDV) Z0FRAN IVP ONE (09:00)
--- NOTE | 2017-11-16 09:00 | ED GI ---
General Chief Complaint: General Problems/Pain Stated Complaint: STOMACH PAIN, ENTIRE BODY PAIN Nursing Triage Note: c/o diarrhea for 1.5 weeks. Pt was seen in the ER on 11-10-17 with similiar symptoms. Sepsis Screen: No Definite Risk Source of Information: Patient, Old Records Exam Limitations: No Limitations History of Present Illness Time Seen By Provider: 08:50 Initial Comments Patient presents to ER by private conveyance with chief complaint is having GI upset, nausea, diarrhea watery clear then without fluffy chunks or blood in the stool. He says this started about 10 days ago. 5 days ago he presented to the ER and was told he had viral gastroenteritis and was prescribed Zofran. He has not picked up the Zofran is midline. He is also not started using Imodium, Pepto -Bismol or other antidiarrheals. Patient says he has not been eating very well he does he gets nauseous and is eats or drinks. He says he has a child on the way next week so they have been very tight on Money. He denies any fevers, chills, shortness of breath, chest pain, abdominal pain. He denies a history of irritable bowel/inflammatory bowel disease or abdominal surgery. He denies trauma to the abdomen. He's never had a colonoscopy. He has been drinking mostly water and orange juice. Allergies and Home Medications Allergies Coded Allergies: No Known Drug Allergies (Unverified , 09/19/17) Home Medications Omeprazole 20 Mg Capsule.dr, 20 MG PO DAILY for 30 Days, #30 Ref 0 Prescribed by: JESSIE PHELPS on 08/15/17 0139 Sucralfate 1 Gm Tablet, 1 GM PO QIDACHS for 14 Days, #56 Ref 0 Prescribed by: JESSIE PHELPS on 08/15/17 0139 Review of Systems Constitutional: No chills, No diaphoresis, No fever, malaise EENTM: No Eye Pain, No Ear Pain Respiratory: Denies Cough, Denies Shortness of Air Cardiovascular: Denies Chest Pain, Denies Edema Gastrointestinal: Denies Abdomen Distended, Denies Abdominal Pain, Diarrhea, Nausea, Poor Appetite, Poor Fluid Intake, Vomiting Past Xttkhgx-Jyfygk-Qvlhlc Hx Patient Social History Alcohol Use: Denies Use Number of Drinks Today: AA Alcohol Beverage of Choice: Beer Recreational Drug Use: No Drug of Choice: XANAX Smoking Status: Never a Smoker 2nd Hand Smoke Exposure: No Recent Foreign Travel: No Contact w/Someone Who Travel: No Recent Infectious Disease Expo: No Recent Hopitalizations: Yes (FOOD BOLUS) Immunizations Up To Date Tetanus Booster (TDap): Unknown PED Vaccines UTD: Yes Date of Influenza Vaccine: Nov 08, 2017 Seasonal Allergies Seasonal Allergies: No Surgeries History of Surgeries: Yes (RIGHT NECK LYMPH NODE REMOVED AT AGE 3) Respiratory History of Respiratory Disorde: No Cardiovascular History of Cardiac Disorders: No Neurological History of Neurological Disord: No Reproductive System Hx Reproductive Disorders: No Sexually Transmitted Disease: No HIV/AIDS: No Genitourinary History of Genitourinary Disor: No Gastrointestinal History of Gastrointestinal Di: Yes Gastrointestinal Disorders: Gastroesophageal Reflux Musculoskeletal History of Musculoskeletal Dis: Yes Musculoskeletal Disorders: Chronic Back Pain Endocrine History of Endocrine Disorders: No HEENT History of HEENT Disorders: No Loss of Vision: Bilateral Hearing Impairment: Denies Cancer History of Cancer: No Psychosocial History of Psychiatric Problem: Yes (HX OF DEPRESSION) Behavioral Health Disorders: Anxiety, Suicide Attempts Integumentary History of Skin or Integumenta: No Blood Transfusions History of Blood Disorders: No Adverse Reaction to a Blood Tr: No Family Medical History Significant Family History: No Pertinent Family Hx Family Medial History: History of drug abuse 03 FATHER 09 BROTHER Physical Exam Vital Signs VS - Last 72 Hours, by Label 11/16/17 08:45 Temp 97.5 Pulse 82 Resp 16 B/P (MAP) 109/85 (93) Pulse Ox 98 O2 Delivery Room Air Capillary Refill : Less Than 3 Seconds General Appearance: WD/WN, mild distress, thin HEENT: PERRL/EOMI, pharynx normal Neck: non-tender, normal inspection Respiratory: no respiratory distress, no accessory muscle use Cardiovascular: normal peripheral pulses, regular rate, rhythm, no edema Peripheral Pulses: 2+ Dorsalis Pedis (R), 2+ Left Dors-Pedis (L) Gastrointestinal: non tender, soft, no organomegaly, abnormal bowel sounds ( hyperactive) Extremities: non-tender, normal inspection, normal capillary refill Neurologic/Psychiatric: alert, normal mood/affect, oriented x 3 Skin: normal color, warm/dry Progress/Results/Core Measures Results/Orders Lab Results Laboratory Tests Test 11/16/17 09:05 Range/Units White Blood Count 5.7 4.3-11.0 10^3/uL Red Blood Count 4.95 4.35-5.85 10^6/uL Hemoglobin 15.9 13.3-17.7 G/DL Hematocrit 45 40-54 % Mean Corpuscular Volume 92 80-99 FL Mean Corpuscular Hemoglobin 32 25-34 PG Mean Corpuscular Hemoglobin Concent 35 32-36 G/DL Red Cell Distribution Width 12.6 10.0-14.5 % Platelet Count 386 130-400 10^3/uL Mean Platelet Volume 8.8 7.4-10.4 FL Neutrophils (%) (Auto) 59 42-75 % Lymphocytes (%) (Auto) 27 12-44 % Monocytes (%) (Auto) 11 0-12 % Eosinophils (%) (Auto) 2 0-10 % Basophils (%) (Auto) 1 0-10 % Neutrophils # (Auto) 3.4 1.8-7.8 X 10^3 Lymphocytes # (Auto) 1.6 1.0-4.0 X 10^3 Monocytes # (Auto) 0.6 0.0-1.0 X 10^3 Eosinophils # (Auto) 0.1 0.0-0.3 10^3/uL Basophils # (Auto) 0.1 0.0-0.1 10^3/uL Sodium Level 142 135-145 MMOL/L Potassium Level 3.6 3.6-5.0 MMOL/L Chloride Level 104 98-107 MMOL/L Carbon Dioxide Level 27 21-32 MMOL/L Anion Gap 11 5-14 MMOL/L Blood Urea Nitrogen 7 7-18 MG/DL Creatinine 1.02 0.60-1.30 MG/DL Estimat Glomerular Filtration Rate > 60 BUN/Creatinine Ratio 7 Glucose Level 92 70-105 MG/DL Calcium Level 9.6 8.5-10.1 MG/DL Magnesium Level 1.9 1.8-2.4 MG/DL Total Bilirubin 0.5 0.1-1.0 MG/DL Aspartate Amino Transf (AST/SGOT) 23 5-34 U/L Alanine Aminotransferase (ALT/SGPT) 16 0-55 U/L Alkaline Phosphatase 87 40-136 U/L Total Protein 8.2 6.4-8.2 GM/DL Albumin 4.6 H 3.2-4.5 GM/DL My Orders Orders - LENIN,JESSIE J Cbc With Automated Diff (11/16/17 08:51) Comprehensive Metabolic Panel (11/16/17 08:51) Magnesium (11/16/17 08:51) Saline Lock/Iv-Start (11/16/17 08:51) Lactated Ringers (Lr 1000 Ml Iv Solution (11/16/17 08:51) Ondansetron Injection (Zofran Injectio (11/16/17 09:00) Saline Lock/Iv-Start (11/16/17 08:51) Medications Given in ED Current Medications Medications Dose Ordered Sig/Ingris Route Start Time Stop Time Status Last Admin Dose Admin Lactated Ringer's 1,000 ml @ 0 mls/hr Q0M ONCE IV 11/16/17 08:51 11/16/17 08:54 DC 11/16/17 09:07 1,000 MLS/HR Ondansetron HCl 4 mg ONCE ONCE IVP 11/16/17 09:00 11/16/17 09:01 DC 11/16/17 09:06 4 MG Vital Signs/I&O Vital Sign - Last 12Hours 11/16/17 08:45 Temp 97.5 Pulse 82 Resp 16 B/P (MAP) 109/85 (93) Pulse Ox 98 O2 Delivery Room Air Blood Pressure Mean: 93 Progress Note #1: Time: 08:58 Progress Note Been going on 10 days however he is not having bloody diarrhea. I have offered to do stool studies but he has elected to do conservative management with Imodium or Pepto-Bismol and Phenergan as opposed to Zofran since it might be cheaper. He would like to keep his costs down his reasoning is her not wanting to do stool studies at this time. His vital signs are okay and is not exhibiting any other signs of a bacterial infection other than length of time that he's been infected. He has not use any Imodium or Pepto-Bismol since starting this diarrhea disease so it should be reasonable to try conservative therapy first. We'll get his nausea under control now and some IV fluids as well as check some basic labs. Progress Note #2: Time: 09:55 Progress Note Patient's had one bowel movement since been here. His nausea is gone. His laboratory findings are unremarkable. We will send Phenergan since she cannot afford the Zofran and have him follow-up with his primary care physician as needed. Departure Impression Impression: Primary Impression: Gastroenteritis and colitis, viral Disposition: 01 HOME, SELF-CARE Condition: Improved Departure-Patient Inst. Decision time for Depature: 09:55 Referrals: AKIRA ESPINOZA MD (PCP/Family) Primary Care Physician Patient Instructions: Viral Gastroenteritis, Adult (DC) Add. Discharge Instructions: Drink plenty of fluids such as a sports drink mixed [id number] with water. Eat a bland diet of foods with bread, rice, applesauce, toast etc. Entire nausea and diarrhea is under better control avoid greasy foods or spicy foods. Use one tablet of Zofran every 6 hours under the tongue or one tablet of Phenergan every 6 hours by mouth for nausea control. Obtain Imodium and take 2 tablets then every 4 hours after that if you have watery loose stools take another tablet. All discharge instructions reviewed with patient and/or family. Voiced understanding. Scripts Promethazine HCl (Promethazine Tablet) 25 Mg Tablet 25 MG PO Q6H Y for NAUSEA/VOMITING, #10 TAB 0 Refills Prov: JESSIE PHELPS 11/16/17 Copy Copies To 1: AUGUSTA BRINK DO JESSIE PHELPS Nov 16, 2017 09:00
[2017-11-16 09:18] LABS: BASOPHILS # (AUTO) 0.1 10^3/uL (0.0-0.1); BASOPHILS % (AUTO) 1 % (0-10); EOSINOPHILS # (AUTO) 0.1 10^3/uL (0.0-0.3); EOSINOPHILS % (AUTO) 2 % (0-10); LYMPHOCYTES # (AUTO) 1.6 X 10^3 (1.0-4.0); LYMPHOCYTES % (AUTO) 27 % (12-44); MEAN CORPUSCULAR HEMOGLOBIN 32 PG (25-34); MEAN CORPUSCULAR HGB CONC 35 G/DL (32-36); MEAN CORPUSCULAR VOLUME 92 FL (80-99); MEAN PLATELET VOLUME 8.8 FL (7.4-10.4); MONOCYTES # (AUTO) 0.6 X 10^3 (0.0-1.0); MONOCYTES % (AUTO) 11 % (0-12); NEUTROPHILS # (AUTO) 3.4 X 10^3 (1.8-7.8); NEUTROPHILS % (AUTO) 59 % (42-75); PLATELET COUNT 386 10^3/uL (130-400); RED BLOOD COUNT 4.95 10^6/uL (4.35-5.85); RED CELL DISTRIBUTION WIDTH 12.6 % (10.0-14.5); WHITE BLOOD COUNT 5.7 10^3/uL (4.3-11.0)
[2017-11-16 09:38] LABS: ALANINE AMINOTRANSFERASE 16 U/L (0-55); ALBUMIN 4.6 GM/DL (3.2-4.5); ANION GAP 11 MMOL/L (5-14); ASPARTATE AMINO TRANSFERASE 23 U/L (5-34); BILIRUBIN,TOTAL 0.5 MG/DL (0.1-1.0); BLOOD UREA NITROGEN 7 MG/DL (7-18); BUN/CREATININE RATIO 7; CALCIUM 9.6 MG/DL (8.5-10.1); CARBON DIOXIDE 27 MMOL/L (21-32); CHLORIDE 104 MMOL/L (98-107); CREATININE SERUM 1.02 MG/DL (0.60-1.30); GFR ESTIMATED > 60; GLUCOSE 92 MG/DL (70-105); MAGNESIUM 1.9 MG/DL (1.8-2.4); POTASSIUM 3.6 MMOL/L (3.6-5.0); SODIUM 142 MMOL/L (135-145); TOTAL PROTEIN 8.2 GM/DL (6.4-8.2)
[2017-11-16] MEDS ORDERED: PROM25TA14 PO (09:57)
[2017-11-16 10:00] VITALS: BP 128/70
== END 2017-11-16 10:00 | disposition home or self-care (01) ==
LOC: EDUNIT# 07:16 → ER 07:17
DX: A08.4 Viral intestinal infection, unspecified (principal); K21.9 Gastro-esophageal reflux disease without esophagitis; F32.9 Major depressive disorder, single episode, unspecified; F41.9 Anxiety disorder, unspecified; Z91.5 Personal history of self-harm; Z87.19 Personal history of other diseases of the digestive system; Z98.890 Other specified postprocedural states
CPT/HCPCS: 36415; 80053; 83735; 85025

== ENCOUNTER 2018-12-01 16:50 | Emergency (ER) | payer OTHER ==
[~2018-12-01] VITALS: Ht 182.9 cm; Wt 82.1 kg
[~2018-12-01 16:50] MED LIST changes: +PROM25TA14 PO
--- OUTSIDE RECORDS SUMMARY | 2018-12-01 16:56 | XMS REPORT ---
Author Author NIMESH ORTIZ [facility] Address [address] [place] [address] Care Team Providers Care Sql Developer Dba Name Role Phone NIMESH ORTIZ Unavailable PROBLEMS Type Condition ICD9-CM Code [id number] Code Onset Dates Condition Status SNOMED Code Problem Gastroesophageal reflux disease, esophagitis presence not specified K21.9 Active 048574766 Problem Reactive depression F32.9 Active 81651250 Problem Odynophagia R13.10 Active 34861140 Problem Mood disorder F39 Active 24875000 ALLERGIES No Information ENCOUNTERS Encounter Location Date Diagnosis [place] [id number] [place] [address] Jun, Gastroesophageal reflux disease, esophagitis presence not specified K21.9 [facility] [id number] [place] [address] 43895- 0400 Jun, Mood disorder F39 and Gastroesophageal reflux disease, esophagitis presence not specified K21.9 [place] [id number] [place] [address] 99191- 3784 Jun, Mood disorder F39 and Gastroesophageal reflux disease, esophagitis presence not specified K21.9 [place] [id number] [place] [address] 65878- 0332 Dec, Reactive depression F32.9 [place] [id number] [place] [address] 04509- 2156 Nov, Physical examination of employee Z02.89 [place] [id number] [place] [address] 87592- 4203 Nov, Reactive depression F32.9 [place] [id number] [place] [address] 07705- 0429 Oct, Odynophagia R13.10 and Encounter for immunization Z23 [facility] [address] [address] Sep, [facility] [id number] [place] [address] 27667 [address]3965 Aug, Tendonitis M77.9 [facility] [id number] [place] [address] 96974- 5635 Jul, Odynophagia R13.10 [facility] [id number] [place] [address] 87886- 9063 March, Mood disorder F39 [place] [id number] [place] [address] 45712- 0756 Feb, Generalized anxiety disorder F41.1 and Mood disorder F39 [facility] [id number] [place] [address] 53215- 4170 Feb, Depression F32.9 [facility] [id number] [place] [address] 78868- 8685 Feb, Depression F32.9 [place] [address] [place] [address] 64580- 2775 Jan, Generalized anxiety disorder F41.1 and Mood disorder F39 IMMUNIZATIONS No Known Immunizations SOCIAL HISTORY Never Assessed REASON FOR VISIT medication PLAN OF CARE VITAL SIGNS MEDICATIONS Medication Instructions Dosage Frequency Start Date End Date Duration Status Paxil 20 mg Orally Once a day 1 tab 24h Nov, 30 day(s) Active Reglan 10 mg Orally qid, ac and hs 1 tab Jun, 30 days Active RESULTS No Results PROCEDURES No Known procedures INSTRUCTIONS MEDICATIONS ADMINISTERED No Known Medications MEDICAL (GENERAL) HISTORY Type Description Date Medical History ADHD Medical History Depression/Anxiety Surgical History Lymph node removal on right side of neck 2 yoa Surgical History throat was expanded at 09/2017 Hospitalization History surgery
--- OUTSIDE RECORDS SUMMARY | 2018-12-01 16:56 | XMS REPORT ---
Author Author NIMESH ORTIZ [facility] Address [address] [place] [address] Care Team Providers Care Lathe Spotter Name Role Phone NIMESH ORTIZ Unavailable PROBLEMS Type Condition ICD9-CM Code [id number] Code Onset Dates Condition Status SNOMED Code Problem Gastroesophageal reflux disease, esophagitis presence not specified K21.9 Active 118380344 Problem Reactive depression F32.9 Active 78527081 Problem Odynophagia R13.10 Active 96533007 Problem Mood disorder F39 Active 97013257 ALLERGIES No Known Allergies ENCOUNTERS Encounter Location Date Diagnosis [place] [address] [address] Jun, Gastroesophageal reflux disease, esophagitis presence not specified K21.9 [facility] [id number] [place] [address] 41727- 7251 Jun, Mood disorder F39 and Gastroesophageal reflux disease, esophagitis presence not specified K21.9 [facility] [id number] [place] [address] 39635- 1200 Jun, Mood disorder F39 and Gastroesophageal reflux disease, esophagitis presence not specified K21.9 [facility] [id number] [place] [address] 03349- 3117 Dec, Reactive depression F32.9 [place] [id number] [place] [address] 24686- 0054 Nov, Physical examination of employee Z02.89 [facility] [id number] [place] [address] 67480- 4991 Nov, Reactive depression F32.9 [place] [id number] [place] [address] 13036- 5905 Oct, Odynophagia R13.10 and Encounter for immunization Z23 [facility] [id number] [place] [address] 36102- 1636 Sep, [facility] [id number] [place] [address] 45167 -0151 Aug, Tendonitis M77.9 [facility] [id number] [place] [address] 67769- 5871 Jul, Odynophagia R13.10 [facility] [id number] [place] [address] 13439- 7926 March, Mood disorder F39 [place] [address] 8[address]- 2851 Feb, Generalized anxiety disorder F41.1 and Mood disorder F39 [place] [address] [address]- 7[address] Feb, Depression F32.9 [facility] [id number] [place] [address] 03461- 9113 Feb, Depression F32.9 [place] [id number] [place] [address] 60591- 4517 Jan, Generalized anxiety disorder F41.1 and Mood disorder F39 IMMUNIZATIONS No Known Immunizations SOCIAL HISTORY Never Assessed REASON FOR VISIT Anxiety f/u Pt in for fu on anxiety, Pt c/o continued stomach issues despite being on the carafate and omeprazole ROLAND Isabel PLAN OF CARE Activity Details Follow Up 6 Months Reason: VITAL SIGNS Height 70.0 in 2018-07-03 Weight 175.8 lbs 2018-07-03 Temperature 97.8 degrees Fahrenheit 2018-07-03 Heart Rate 68 bpm 2018-07-03 Respiratory Rate 18 2018-07-03 BMI 25.22 kg/m2 2018-07-03 Blood pressure systolic 124 mmHg 2018-07-03 Blood pressure diastolic 72 mmHg 2018-07-03 MEDICATIONS Medication Instructions Dosage Frequency Start Date End Date Duration Status Paxil 20 mg Orally Once a day 1 tab 24h Nov, 30 day(s) Active Omeprazole 40 mg Orally Once a day 1 capsule 24h 30 days Active Carafate 1 GM Orally 4 times a day 1 tablet on an empty stomach 6h 30 days Active Reglan 10 MG Orally qqid, ac and hs 1 tab Jun, Active RESULTS No Results PROCEDURES No Known procedures INSTRUCTIONS MEDICATIONS ADMINISTERED No Known Medications MEDICAL (GENERAL) HISTORY Type Description Date Medical History ADHD Medical History Depression/Anxiety Surgical History Lymph node removal on right side of neck 2 yoa Surgical History throat was expanded at 09/2017 Hospitalization History surgery
--- OUTSIDE RECORDS SUMMARY | 2018-12-01 16:56 | XMS REPORT ---
Author Author AKIRA ESPINOZA Organization [facility] Address [address] [place] [address] Care Team Providers Care Thread Cutter Tender Name Role Phone AKIRA ESPINOZA Unavailable PROBLEMS Type Condition ICD9-CM Code [id number] Code Onset Dates Condition Status SNOMED Code Problem Gastroesophageal reflux disease, esophagitis presence not specified K21.9 Active 798146918 Problem Reactive depression F32.9 Active 06340222 Problem Odynophagia R13.10 Active 93617561 Problem Mood disorder F39 Active 56240103 ALLERGIES No Information ENCOUNTERS Encounter Location Date Diagnosis [facility] [address] [address] Dec, Reactive depression F32.9 [facility] [id number] [place] [address] 74098- 5062 Nov, Physical examination of employee Z02.89 [facility] [address] 92402- 7658 Nov, Reactive depression F32.9 [facility] [id number] [place] [address] 97237- 3031 Oct, Odynophagia R13.10 and Encounter for immunization Z23 [facility] [id number] [place] [address] 20810- 4328 Sep, [facility] [address] [phone] Aug, Tendonitis M77.9 [facility] [id number] [place] [address] 43057- 4256 Jul, Odynophagia R13.10 [facility] [address] [address] March, Mood disorder F39 [facility] [id number] [address] Feb, Generalized anxiety disorder F41.1 and Mood disorder F39 [facility] [address] [address] Feb, Depression F32.9 [facility] [id number] [address] Feb, Depression F32.9 [facility] [id number] [address] Jan, Generalized anxiety disorder F41.1 and Mood disorder F39 IMMUNIZATIONS No Known Immunizations SOCIAL HISTORY Never Assessed REASON FOR VISIT scope results PLAN OF CARE VITAL SIGNS MEDICATIONS No Known Medications RESULTS No Results PROCEDURES No Known procedures INSTRUCTIONS MEDICATIONS ADMINISTERED No Known Medications MEDICAL (GENERAL) HISTORY Type Description Date Medical History ADHD Medical History Depression/Anxiety Surgical History Lymph node removal on right side of neck 2 yoa Surgical History throat was expanded at 09/2017 Hospitalization History surgery
--- OUTSIDE RECORDS SUMMARY | 2018-12-01 16:56 | XMS REPORT ---
Author Author AKIRA ESPINOZA Organization [facility] Address [address] [place] [address] Care Team Providers Care Machine Repairman Name Role Phone AKIRA ESPINOZA Unavailable PROBLEMS Type Condition ICD9-CM Code TDZ03-QL Code Onset Dates Condition Status SNOMED Code Problem Gastroesophageal reflux disease, esophagitis presence not specified K21.9 Active 921521375 Problem Reactive depression F32.9 Active 02975971 Problem Odynophagia R13.10 Active 61984515 Problem Mood disorder F39 Active 50117154 ALLERGIES No Known Allergies ENCOUNTERS Encounter Location Date Diagnosis [facility] [address] [address] Dec, Reactive depression F32.9 [facility] [id number] [place] [address]10- 1685 Nov, Physical examination of employee Z02.89 [facility] [address] [address] Nov, Reactive depression F32.9 [facility] [id number] [place] [address] 13931- 9674 Oct, Odynophagia R13.10 and Encounter for immunization Z23 [facility] [id number] [place] [address] 73105- [address]85 Sep, [facility] [address] [address] Aug, Tendonitis M77.9 [facility] [id number] [place] [address] 18411- 2056 Jul, Odynophagia R13.10 [facility] [address] [address] March, Mood disorder F39 [facility] [address] [facility] [id number] [address] Feb, Generalized anxiety disorder F41.1 and Mood disorder F39 [facility] [id number] [address] Feb, Depression F32.9 [facility] [id number] [address] Feb, Depression F32.9 [place] [id number] [address] Jan, Generalized anxiety disorder F41.1 and Mood disorder F39 IMMUNIZATIONS Vaccine Route Administration Date Status FLUARIX QUAD (3 AND UP) 2016 IM Intramuscular Oct 30, 2017 Administered SOCIAL HISTORY Never Assessed REASON FOR VISIT PT had a scope done last months at and is here today because he is still having problems swallowing-Roque WATKINS PLAN OF CARE Activity Details Follow Up after appt with GI Reason: VITAL SIGNS Height 70.0 in 2017-10-30 Weight 168.4 lbs 2017-10-30 Temperature 98.3 degrees Fahrenheit 2017-10-30 Heart Rate 68 bpm 2017-10-30 Respiratory Rate 18 2017-10-30 BMI 24.16 kg/m2 2017-10-30 Blood pressure systolic 116 mmHg 2017-10-30 Blood pressure diastolic 78 mmHg 2017-10-30 MEDICATIONS Medication Instructions Dosage Frequency Start Date End Date Duration Status Omeprazole 40 mg Orally Once a day 1 capsule 24h 90 days Active Zoloft 50 mg Orally Once a day 1 tablet 24h Feb, Not-Taking Ativan 0.5 MG Orally twice a day, prn anxiety 1 Feb, Not- Taking Carafate 1 GM Orally 4 times a day 1 tablet on an empty stomach 6h 30 days Active RESULTS No Results PROCEDURES Procedure Date Ordered Result Body Site FLUARIX QUAD (3 AND UP) 2016Oct 30, 2017 SINGLE IMMUNIZATION ADMIN Oct 30, 2017 INSTRUCTIONS MEDICATIONS ADMINISTERED No Known Medications MEDICAL (GENERAL) HISTORY Type Description Date Medical History ADHD Medical History Depression/Anxiety Surgical History Lymph node removal on right side of neck 2 yoa Surgical History throat was expanded at 09/2017 Hospitalization History surgery
--- OUTSIDE RECORDS SUMMARY | 2018-12-01 16:56 | XMS REPORT ---
Author Author NICA ROSAS [facility] Address [address] [place] [address] Care Team Providers Care Auger Operator Name Role Phone NICA ROSAS Unavailable PROBLEMS Type Condition ICD9-CM Code IRO03-RN Code Onset Dates Condition Status SNOMED Code Problem Gastroesophageal reflux disease, esophagitis presence not specified K21.9 Active 099776838 Problem Reactive depression F32.9 Active 33348815 Problem Odynophagia R13.10 Active 98670601 Problem Mood disorder F39 Active 12156082 ALLERGIES No Known Allergies ENCOUNTERS Encounter Location Date Diagnosis [facility] [place] [id number] [place] [address] Jun, Gastroesophageal reflux disease, esophagitis presence not specified K21.9 [facility] [place] [id number] [place] [address]35- 2692 Jun, Mood disorder F39 and Gastroesophageal reflux disease, esophagitis presence not specified K21.9 [facility] [place] [id number] [place] [address] 85955- 9405 Jun, Mood disorder F39 and Gastroesophageal reflux disease, esophagitis presence not specified K21.9 [facility] [place] [id number] [place] [address]- 8882 Dec, Reactive depression F32.9 [facility] [place] [id number] [place] [address]4027- 1505 Nov, Physical examination of employee Z02.89 [facility], [place] [id number] [place] [address] 99990- 6403 Nov, Reactive depression F32.9 [place] [id number] [place] [address] 27203- 3624 Oct, Odynophagia R13.10 and Encounter for immunization Z23 [facility], [place] [address] [address] Sep, [facility] [id number] [place] [address]9514 Aug, Tendonitis M77.9 [facility] [place] [id number] [place] [address] 23240- 2921 Jul, Odynophagia R13.10 [facility] [place] [id number] [place] [address] 99996- 5476 March, Mood disorder F39 [place] [address] [address] Feb, Generalized anxiety disorder F41.1 and Mood disorder F39 [place] [id number] [place] [address] 81101- 8017 Feb, Depression F32.9 [facility] [place] [id number] [place] [address] 52593- 1629 Feb, Depression F32.9 [place] [id number] [place] [address] 00369- 0313 Jan, Generalized anxiety disorder F41.1 and Mood disorder F39 IMMUNIZATIONS No Known Immunizations SOCIAL HISTORY Never Assessed REASON FOR VISIT Vomiting, acid reflux last evening. MOHAN Nieves PLAN OF CARE Activity Details Follow Up prn Reason: VITAL SIGNS Height 70.0 in 2018-07-16 Weight 179.9 lbs 2018-07-16 Temperature 98.2 degrees Fahrenheit 2018-07-16 Heart Rate 88 bpm 2018-07-16 Respiratory Rate 20 2018-07-16 BMI 25.81 kg/m2 2018-07-16 Blood pressure systolic 136 mmHg 2018-07-16 Blood pressure diastolic 78 mmHg 2018-07-16 MEDICATIONS Medication Instructions Dosage Frequency Start Date End Date Duration Status Paxil 20 mg Orally Once a day 1 tab 24h Nov, 30 day(s) Active Pantoprazole Sodium 40 mg Orally Once a day 1 tablet 24h Jun, 30 day(s) Active Carafate 1 GM Orally 4 times a day 1 tablet on an empty stomach 6h 30 days Active Reglan 10 mg Orally qid, ac [...]
--- OUTSIDE RECORDS SUMMARY | 2018-12-01 16:56 | XMS REPORT ---
Author Author LACHELLE RICE [facility] Address [address] [place] [address] Phone Unavailable Care Team Providers Care Educational Therapist Name Role Phone LACHELLE RICE Unavailable Unavailable PROBLEMS Type Condition ICD9-CM Code [id number] Code Onset Dates Condition Status SNOMED Code Problem Gastroesophageal reflux disease, esophagitis presence not specified K21.9 Active 822316908 Problem Reactive depression F32.9 Active 02610663 Problem Odynophagia R13.10 Active 93613498 Problem Mood disorder F39 Active 50825525 ALLERGIES No Information ENCOUNTERS Encounter Location Date Diagnosis [facility] [address] [address] 05 Dec, 2017 Reactive depression F32.9 [facility] [address] [address]- [address] Nov, Physical examination of employee Z02.89 [facility] [address] [address] Nov, Reactive depression F32.9 [facility] [id number] [place] [address] 71208- 5415 Oct, Odynophagia R13.10 and Encounter for immunization Z23 [facility] [address] [address] Sep, [facility] [address] [address] Aug, Tendonitis M77.9 [facility] [address] [address] Jul, Odynophagia R13.10 [facility] [address] [address]- [address] March, Mood disorder F39 [facility] [address] 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
--- OUTSIDE RECORDS SUMMARY | 2018-12-01 16:57 | XMS REPORT ---
Author Author AKIRA ESPINOZA Organization [facility] Address [address] [place] [address] Care Team Providers Care Heel Shaver Name Role Phone AKIRA ESPINOZA Unavailable PROBLEMS Type Condition ICD9-CM Code [id number] Code Onset Dates Condition Status SNOMED Code Problem Gastroesophageal reflux disease, esophagitis presence not specified K21.9 Active 902130689 Problem Reactive depression F32.9 Active 53332985 Problem Odynophagia R13.10 Active 78286224 Problem Mood disorder F39 Active 71475320 ALLERGIES No Known Allergies ENCOUNTERS Encounter Location Date Diagnosis [facility] [address] [address] Dec, Reactive depression F32.9 [facility] [id number] [place] [address]60- [address]99 Nov, Physical examination of employee Z02.89 [facility] [address] [address]- [address] Nov, Reactive depression F32.9 [facility] [id number] [place] [address] 93818- 5320 Oct, Odynophagia R13.10 and Encounter for immunization Z23 [facility] [id number] [place] [address] 50792- 9748 Sep, [facility] [address] [address] Aug, Tendonitis M77.9 [facility] [id number] [place] [address] 37661- 3724 Jul, Odynophagia R13.10 [facility] [address] [address]- [address] March, Mood disorder F39 [facility] [address] [facility] [id number] [address] Feb, Generalized anxiety disorder F41.1 and Mood disorder F39 [facility] [id number], [place] [address] Feb, Depression F32.9 [facility] [address] [id number], [place] [address] Feb, Depression F32.9 [facility] [address] [id number], [place] [address] Jan, Generalized anxiety disorder F41.1 and Mood disorder F39 IMMUNIZATIONS No Known Immunizations SOCIAL HISTORY Never Assessed REASON FOR VISIT Hospital f/[facility], acid reflux and trouble swallowing, recommended scope, no PCP PLAN OF CARE Activity Details Follow Up after Dr Mora appt Reason: VITAL SIGNS Height 70.0 in 2017-08-22 Weight 160 lbs 2017-08-22 Temperature 98.4 degrees Fahrenheit 2017-08-22 Heart Rate 90 bpm 2017-08-22 Respiratory Rate 20 2017-08-22 BMI 22.96 kg/m2 2017-08-22 Blood pressure systolic 124 mmHg 2017-08-22 Blood pressure diastolic 76 mmHg 2017-08-22 MEDICATIONS Medication Instructions Dosage Frequency Start Date End Date Duration Status Carafate 1 GM Orally 4 times a day 1 tablet on an empty stomach 6h Active Omeprazole 40 mg Orally Once a day 1 capsule 24h 105 days Active RESULTS Name Result Date Reference Range CT Scan : Chest w/o Contrast 2017-08-28 PROCEDURES No Known procedures INSTRUCTIONS MEDICATIONS ADMINISTERED No Known Medications MEDICAL (GENERAL) HISTORY Type Description Date Medical History ADHD Medical History Depression/Anxiety Surgical History Lymph node removal on right side of neck 2 yoa Surgical History throat was expanded at 09/2017 Hospitalization History surgery
--- OUTSIDE RECORDS SUMMARY | 2018-12-01 16:57 | XMS REPORT ---
Author Author NIMESH ORTIZ [facility] Address [address] [place] [address] Care Team Providers Care Brim Raiser Name Role Phone NIMESH ORTIZ Unavailable PROBLEMS Type Condition ICD9-CM Code ZQG36-WS Code Onset Dates Condition Status SNOMED Code Problem Gastroesophageal reflux disease, esophagitis presence not specified K21.9 Active 799731719 Problem Reactive depression F32.9 Active 59744869 Problem Odynophagia R13.10 Active 42108730 Problem Mood disorder F39 Active 25821611 ALLERGIES No Known Allergies ENCOUNTERS Encounter Location Date Diagnosis [place] [address] [address] Dec, Reactive depression F32.9 [facility] [address] [address] Nov, Physical examination of employee Z02.89 [place] [address] [address] Nov, Reactive depression F32.9 [facility] [address] [address] Oct, Odynophagia R13.10 and Encounter for immunization Z23 [facility] [id number] [place] [address] 75675- [address] Sep, [facility] [address] [address] Aug, Tendonitis M77.9 [facility] [address] [address]- [address] Jul, Odynophagia R13.10 [facility] [address] [address]- [address] March, Mood disorder F39 [facility] [address] [facility] [id number] [address] Feb, Generalized anxiety disorder F41.1 and Mood disorder F39 [facility] [id number] [address] Feb, Depression F32.9 [facility] [id number], [place] [address] Feb, Depression F32.9 [facility] [address] [facility] [id number] [address] Jan, Generalized anxiety disorder F41.1 and Mood disorder F39 IMMUNIZATIONS No Known Immunizations SOCIAL HISTORY Never Assessed REASON FOR VISIT Anxiety f/u Alireza Wang RN, 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, Discuss starting back on medciation for depression/anxiety PLAN OF CARE Activity Details Follow Up 4 Weeks Reason: VITAL SIGNS Height 70.0 in 2017-11-28 Weight 160.4 lbs 2017-11-28 Temperature 98.1 degrees Fahrenheit 2017-11-28 Heart Rate 64 bpm 2017-11-28 Respiratory Rate 20 2017-11-28 BMI 23.01 kg/m2 2017-11-28 Blood pressure systolic 112 mmHg 2017-11-28 Blood pressure diastolic 70 mmHg 2017-11-28 MEDICATIONS Medication Instructions Dosage Frequency Start Date End Date Duration Status Carafate 1 GM Orally 4 times a day 1 tablet on an empty stomach 6h 30 days Active Paxil 20 mg Orally Once a day 1 tab 24h Nov, 30 day(s) Active Omeprazole 40 mg Orally Once a day 1 capsule 24h 90 days Active RESULTS No Results PROCEDURES No Known procedures INSTRUCTIONS MEDICATIONS ADMINISTERED No Known Medications MEDICAL (GENERAL) HISTORY Type Description Date Medical History ADHD Medical History Depression/Anxiety Surgical History Lymph node removal on right side of neck 2 yoa Surgical History throat was expanded at 09/2017 Hospitalization History surgery
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
[2018-12-01] MEDS ORDERED: NS IV 1000 ML 1,000 ML IV ONE (18:09)
[2018-12-01] MEDS ORDERED: KETOROLAC 30 MG/ML VIAL IVP STA (18:09)
[2018-12-01 18:18] LABS: BASOPHILS % (AUTO) 1 % (0-10); EOSINOPHILS # (AUTO) 0.1 10^3/uL (0.0-0.3); EOSINOPHILS % (AUTO) 1 % (0-10); HEMATOCRIT 43 % (40-54); HEMOGLOBIN 14.7 G/DL (13.3-17.7); LYMPHOCYTES % (AUTO) 29 % (12-44); MEAN CORPUSCULAR HEMOGLOBIN 32 PG (25-34); MEAN CORPUSCULAR HGB CONC 34 G/DL (32-36); MEAN CORPUSCULAR VOLUME 95 FL (80-99); MEAN PLATELET VOLUME 9.8 FL (7.4-10.4); MONOCYTES # (AUTO) 0.9 X 10^3 (0.0-1.0); MONOCYTES % (AUTO) 14 % (0-12); NEUTROPHILS # (AUTO) 3.7 X 10^3 (1.8-7.8); NEUTROPHILS % (AUTO) 55 % (42-75); PLATELET COUNT 348 10^3/uL (130-400); RED BLOOD COUNT 4.54 10^6/uL (4.35-5.85); WHITE BLOOD COUNT 6.8 10^3/uL (4.3-11.0)
--- NOTE | 2018-12-01 18:26 | ED Respiratory ---
General Chief Complaint: Chest Pain Stated Complaint: CHEST PAIN,SOB Nursing Triage Note: Patient advises chest pain that began last night that has become progressively worse. He advises he has felt as though he was going to pass out throughout the day and that it hurts to take a deep breath. Source: patient Exam Limitations: no limitations History of Present Illness Date Seen by Provider: Dec 01, 2018 Time Seen by Provider: 17:55 Initial Comments 33 -year-old male patient presents to the emergency department with complaints of cough, chest tightness, shortness of air, generalized body aches, headache, chills, and rhinorrhea beginning last night. Reports increased ribs/chest pain with taking a deep breath, talking, and movement. Denies using any over-the- counter medications or home remedies. Denies contacting his primary care provider. Location Injury Occurred: denies injury Timing/Duration: other (onset last night) Prior Episodes/Possible Cause: no prior episodes Modifying Factors: Worse With Coughing, Worse With Other (worse with movement and palpation) Allergies and Home Medications Allergies Coded Allergies: No Known Drug Allergies (Unverified , 12/01/18) Home Medications Albuterol Sulfate 18 Gm Hfa.aer.ad, 2 PUFF INH Q6H PRN for SHORTNESS OF BREATH Prescribed by: KANG HUTCHINSON on 12/01/181929 Omeprazole 20 Mg Capsule.dr, 20 MG PO DAILY Prescribed by: JESSIE RUDOLPH on 08/15/17138 Oseltamivir Phosphate 75 Mg Capsule, 75 MG PO BID Prescribed by: KANG HUTCHINSON on 12/01/181929 Prednisone 20 Mg Tab, 40 MG PO DAILY Prescribed by: KANG HUTCHISNON on 12/01/181929 Promethazine HCl 25 Mg Tablet, 25 MG PO Q6H PRN for NAUSEA/VOMITING Prescribed by: JESSIE RUDOLPH on 11/16/17 0957 Sucralfate 1 Gm Tablet, 1 GM PO QIDACHS Prescribed by: JESSIE RUDOLPH on 08/15/17138 Patient Home Medication List Home Medication List Reviewed: Yes Review of Systems Review of Systems Constitutional: see HPI, chills; No fever; malaise EENTM: see HPI, nose congestion, throat pain, other (rhinorrhea); No ear pain Respiratory: cough; No phlegm; short of breath; No stridor, No wheezing Cardiovascular: see HPI, chest pain (chest/rib pain); No edema, No palpitations , No syncope Gastrointestinal: No abdominal pain, No constipation, No diarrhea; loss of appetite; No nausea, No vomiting Genitourinary: no symptoms reported Musculoskeletal: see HPI, other (generalized bodyaches) Skin: no symptoms reported Psychiatric/Neurological: See HPI All Other Systems Reviewed Negative Unless Noted: Yes (Negative excepted noted.) Past Obclivj-Nlxqkq-Sjhsjg Hx Past Med/Social Hx: Reviewed Nursing Past Med/Soc Hx Patient Social History Alcohol Use: Denies Use Number of Drinks Today: AA Alcohol Beverage of Choice: Beer Recreational Drug Use: No Drug of Choice: XANAX Smoking Status: Never a Smoker 2nd Hand Smoke Exposure: No Recent Foreign Travel: No Contact w/Someone Who Travel: No Recent Infectious Disease Expo: No Recent Hopitalizations: Yes (FOOD BOLUS) Immunizations Up To Date Tetanus Booster (TDap): Unknown PED Vaccines UTD: Yes Date of Influenza Vaccine: Nov 08, 2017 Seasonal Allergies Seasonal Allergies: No Past Medical History Surgeries: Yes (RIGHT NECK LYMPH NODE REMOVED AT AGE 3) Respiratory: No Cardiac: No Neurological: No Reproductive Disorders: No Sexually Transmitted Disease: No HIV/AIDS: No Genitourinary: No Gastrointestinal: Yes Gastroesophageal Reflux Musculoskeletal: Yes Chronic Back Pain Endocrine: No HEENT: No Loss of Vision: Bilateral Hearing Impairment: Denies Cancer: No Psychosocial: Yes (HX OF DEPRESSION) Anxiety, Suicide Attempts Integumentary: No Blood Disorders: No Adverse Reaction/Blood Tranf: No Family Medical History Reviewed Nursing Family Hx History of drug abuse 03 FATHER 09 BROTHER No Pertinent Family Hx Physical Exam Vital Signs - First Documented Capillary Refill : Less Than 3 Seconds Height: 6'0" Weight: 181lbs. 0.0oz. 82.231946ks; 22.4 BMI Method:Stated General Appearance: WD/WN, no apparent distress HEENT: PERRL/EOMI, TMs normal, pharyngeal erythema, other ((+) rhinorrhea and nasal congestion.) Neck: non-tender, full range of motion, supple, lymphadenopathy (R), lymphadenopathy (L) Respiratory: lungs clear, no respiratory distress, no accessory muscle use, decreased breath sounds; No crackles, No rales, No rhonchi, No stridor, No wheezing; other (anterior chest TTP) Cardiovascular: normal peripheral pulses, regular rate, rhythm, no edema, no gallop, no murmur Gastrointestinal: normal bowel sounds, soft, no organomegaly; No distended, No guarding, No rebound; tenderness (mild epigastric and RUQ tenderness.) Extremities: no pedal edema, no calf tenderness, normal capillary refill Neurologic/Psychiatric: alert, normal mood/affect, oriented x 3 Skin: normal color, warm/dry Progress/Results/Core Measures Suspected Sepsis Recent Fever Within 48 Hours: Yes Infection Criteria Present: Suspected New Infection New/Unexplained Altered Menta: No Sepsis Screen: Possible Sepsis Risk SIRS Temperature:100.0 Pulse: 97 Respiratory Rate: 20 Laboratory Tests 12/01/18 17:10: White Blood Count 6.8 Blood Pressure 136 /109 Mean: 118 Laboratory Tests 12/01/18 17:10: Creatinine 1.14, Platelet Count 348, Total Bilirubin 0.3 Results/Orders Lab Results Laboratory Tests Test 12/01/18 17:10 Range/Units White Blood Count 6.8 4.3-11.0 10^3/uL Red Blood Count 4.54 4.35-5.85 10^6/uL Hemoglobin 14.7 13.3-17.7 G/DL Hematocrit 43 40-54 % Mean Corpuscular Volume 95 80-99 FL Mean Corpuscular Hemoglobin 32 25-34 PG Mean Corpuscular Hemoglobin Concent 34 32-36 G/DL Red Cell Distribution Width 13.0 10.0-14.5 % Platelet Count 348 130-400 10^3/uL Mean Platelet Volume 9.8 7.4-10.4 FL Neutrophils (%) (Auto) 55 42-75 % Lymphocytes (%) (Auto) 29 12-44 % Monocytes (%) (Auto) 14 H 0-12 % Eosinophils (%) (Auto) 1 0-10 % Basophils (%) (Auto) 1 0-10 % Neutrophils # (Auto) 3.7 1.8-7.8 X 10^3 Lymphocytes # (Auto) 2.0 1.0-4.0 X 10^3 Monocytes # (Auto) 0.9 0.0-1.0 X 10^3 Eosinophils # (Auto) 0.1 0.0-0.3 10^3/uL Basophils # (Auto) 0.0 0.0-0.1 10^3/uL Sodium Level 139 135-145 MMOL/L Potassium Level 4.1 3.6-5.0 MMOL/L Chloride Level 103 98-107 MMOL/L Carbon Dioxide Level 24 21-32 MMOL/L Anion Gap 12 5-14 MMOL/L Blood Urea Nitrogen 10 7-18 MG/DL Creatinine 1.14 0.60-1.30 MG/DL Estimat Glomerular Filtration Rate > 60 BUN/Creatinine Ratio 9 Glucose Level 102 70-105 MG/DL Calcium Level 9.8 8.5-10.1 MG/DL Corrected Calcium 8.5-10.1 MG/DL Total Bilirubin 0.3 0.1-1.0 MG/DL Aspartate Amino Transf (AST/SGOT) 24 5-34 U/L Alanine Aminotransferase (ALT/SGPT) 26 0-55 U/L Alkaline Phosphatase 86 40-136 U/L Troponin I < 0.028 <0.028 NG/ML Total Protein 8.8 H 6.4-8.2 GM/DL Albumin 4.8 H 3.2-4.5 GM/DL Thyroid Stimulating Hormone (TSH) 0.66 0.35-4.94 UIU/ML Micro Results Microbiology 12/01/18 Influenza Types A,B Antigen (JAM) - Final, Complete My Orders Orders - KANG HUTCHINSON Chest Pa/Lat (2 View) (12/01/18 18:02) Saline Lock/Iv-Start (12/01/18 18:09) Ekg Tracing (12/01/18 18:09) Monitor-Rhythm Ecg Trace Only (12/01/18 18:09) Cbc With Automated Diff (12/01/18 18:09) Comprehensive Metabolic Panel (12/01/18 18:09) Thyroid Stimulating Hormone (12/01/18 18:09) Troponin I (12/01/18 18:09) Influenza A And B Antigens (12/01/18 18:09) Ketorolac Injection (Toradol Injection) (12/01/18 18:09) Ns Iv 1000 Ml (Sodium Chloride 0.9%) (12/01/18 18:09) Albuterol/Ipra Inhalation Soln (Duoneb I (12/01/18 19:15) Acetaminophen Tablet (Tylenol Tablet) (12/01/18 19:11) Svn Small Volume Nebulizer (12/01/18 19:11) Medications Given in ED Current Medications Medications Dose Ordered Sig/Ingris Route Start Time Stop Time Status Last Admin Dose Admin Albuterol/ Ipratropium 3 ml ONCE ONCE INH 12/01/18 19:15 12/01/18 19:16 DC 12/01/18 19:26 3 ML Sodium Chloride 1,000 ml @ 0 mls/hr Q0M ONCE IV 12/01/18 18:09 12/01/18 18:12 DC 12/01/18 18:28 0 MLS/HR Vital Signs/I&O 12/01/18 12/01/18 12/01/18 12/01/18 16:57 16:57 19:26 20:05 Temp 100.0 Pulse 97 82 Resp 20 14 B/P (MAP) 136/109 (118) 137/87 (104) Pulse Ox 97 97 99 O2 Delivery Room Air Room Air Room Air Room Air Capillary Refill : Less Than 3 Seconds Blood Pressure Mean: 118 ECG Initial ECG Impression Date: Dec 01, 2018 Initial ECG Impression Time: 17:06 Initial ECG Rhythm: Normal Sinus Initial ECG Impression: Normal Comment Normal sinus rhythm. no STEMI. ECG reviewed by Dr. Rudolph. Diagnostic Imaging Diagonstic Imaging: Xray Plain Films/CT/US/NM/MRI: chest Comments CHEST PA/LAT (2 VIEW) PATIENT HISTORY: Chest pain. TECHNIQUE: Two views of the chest. COMPARISON: 11/10/2017. FINDINGS: The lung volumes are normal. No focal consolidation is seen. No large pleural effusion or pneumothorax is seen. The cardiomediastinal silhouette is normal in size and contour. No acute osseous abnormality is seen. IMPRESSION: No acute pulmonary abnormality seen. Dictated on workstation # [id number] Dict: 12/01/18 1849 Reviewed: Reviewed by Me (radiology report reviewed by me) Departure Communication (Admissions) all laboratory and diagnostic findings discussed with the patient. Patient was given 1 L normal saline, 30 mg Toradol IV, a duoneb treatment, and Tylenol with improvement in symptoms. Following medications patient is alert/oriented 3, no acute distress. Lungs are clear to auscultation. Vascular regular rate and rhythm. Abdomen soft, nontender, positive bowel sounds, nondistended. Plan for discharge to home with follow-up as an outpatient tomorrow or Saturday with Dr. Espinoza. Patient to return to the emergency department for worsened symptoms or any other concerns. Impression Primary Impression: Influenza-like symptoms Disposition: HOME, SELF-CARE Condition: Improved Departure-Patient Inst. Decision time for Depature: 19:23 Referrals: AKIRA ESPINOZA MD (PCP/Family) Primary Care Physician Patient Instructions: Acute Abdomen (Belly Pain), Adult (DC), Chest Pain That Is Not Caused by the Heart (DC), Flu, Adult (DC) Add. Discharge Instructions: All discharge instructions reviewed with patient and/or family. Voiced understanding. Medications as directed. Tylenol over the counter as directed for pain. Motrin 800 mg by mouth every 8 hours as needed for pain. Push fluids. Over the counter decongestants and antihistamines as directed for symptomatic relief. Follow-up with Dr. Akira Espinoza tomorrow or Saturday for recheck. Call tomorrow morning for appointment time. Return to the emergency department for worsened pain, fever, shortness of air, vomiting, difficulty swallowing, decreased urination, or any other concerns. Scripts Albuterol Sulfate (Ventolin Hfa) 18 Gm Hfa.aer.ad 2 PUFF INH Q6H PRN for SHORTNESS OF BREATH, #1 EA 0 Refills Prov: KANG HUTCHINSON 12/01/18 Prednisone (Prednisone) 20 Mg Tab 40 MG PO DAILY, #10 TAB 0 Refills Prov: KANG HUTCHINSON 12/01/18 Oseltamivir Phosphate (Oseltamivir Phosphate) 75 Mg Capsule 75 MG PO BID, #10 CAP 0 Refills Prov: KANG HUTCHINSON 12/01/18 KANG HUTCHINSON Dec 01, 2018 18:26
[2018-12-01 18:31] LABS: ALANINE AMINOTRANSFERASE 26 U/L (0-55); ALBUMIN 4.8 GM/DL (3.2-4.5); ALKALINE PHOSPHATASE 86 U/L (40-136); BILIRUBIN,TOTAL 0.3 MG/DL (0.1-1.0); BUN/CREATININE RATIO 9; CALCIUM 9.8 MG/DL (8.5-10.1); CARBON DIOXIDE 24 MMOL/L (21-32); CHLORIDE 103 MMOL/L (98-107); CREATININE SERUM 1.14 MG/DL (0.60-1.30); GFR ESTIMATED > 60; GLUCOSE 102 MG/DL (70-105); POTASSIUM 4.1 MMOL/L (3.6-5.0); SODIUM 139 MMOL/L (135-145); TOTAL PROTEIN 8.8 GM/DL (6.4-8.2)
--- NOTE | 2018-12-01 18:55 | Diagnostic Imaging Report ---
PATIENT HISTORY: Chest pain. TECHNIQUE: Two views of the chest. COMPARISON: 11/10/2017. FINDINGS: The lung volumes are normal. No focal consolidation is seen. No large pleural effusion or pneumothorax is seen. The cardiomediastinal silhouette is normal in size and contour. No acute osseous abnormality is seen. IMPRESSION: No acute pulmonary abnormality seen. Dictated by: Dictated on workstation # [id number]
[2018-12-01] MEDS ORDERED: ACETAMINOPHEN 500 MG TAB (TYLENOL) PO STA (19:11)
[2018-12-01] MEDS ORDERED: RT-ALBUTEROL/IPRATROPIUM 3 ML (DUONEB) VIAL INH ONE (19:15)
[2018-12-01] MEDS ORDERED: PRD20T PO (19:30)
[2018-12-01] MEDS ORDERED: OSEL75CA15 PO (19:30)
[2018-12-01] MEDS ORDERED: ALBU18HF2 INH (19:30)
[2018-12-01 20:05] VITALS: BP 137/87
== END 2018-12-01 20:05 | disposition home or self-care (01) ==
LOC: EDUNIT# 16:50 → ER 16:52
DX: R05 Cough (principal); R07.9 Chest pain, unspecified; R06.02 Shortness of breath; R51 Headache; R68.83 Chills (without fever); J34.89 Other specified disorders of nose and nasal sinuses; R52 Pain, unspecified; K21.9 Gastro-esophageal reflux disease without esophagitis; F41.9 Anxiety disorder, unspecified; F32.9 Major depressive disorder, single episode, unspecified; Z91.5 Personal history of self-harm; Z79.51 Long term (current) use of inhaled steroids
CPT/HCPCS: 36415; 71046; 80053; 84443; 84484; 85025; 87804; 93005; 93041; 94640; 96361; 96374

== ENCOUNTER 2019-06-22 02:36 | Emergency (ER) | payer BC, OTHER ==
[~2019-06-22] VITALS: Ht 182.9 cm; Wt 82.1 kg
[~2019-06-22 02:36] MED LIST changes: +ALBU18HF2 INH; -OMEP20CA12 PO; +OMEP20CA13 PO; +OSEL75CA15 PO
[2019-06-22] MEDS ORDERED: LACTATED RINGERS 1,000 ML IV ONE ×3 (02:41→05:18)
[2019-06-22 02:48] LABS: BILIRUBIN,URINE NEGATIVE (NEGATIVE); CLARITY,URINE CLEAR; COLOR,URINE YELLOW; GLUCOSE, URINE (UA) NEGATIVE (NEGATIVE); KETONES,URINE NEGATIVE (NEGATIVE); LEUKOCYTE ESTERASE ,URINE NEGATIVE (NEGATIVE); NITRITE,URINE NEGATIVE (NEGATIVE); PH,URINE 6 (5-9); PROTEIN,URINE NEGATIVE (NEGATIVE); UROBILINOGEN,URINE NORMAL (NORMAL)
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
[2019-06-22 02:57] LABS: BASOPHILS # (AUTO) 0.1 10^3/uL (0.0-0.1); BASOPHILS % (AUTO) 2 % (0-10); EOSINOPHILS # (AUTO) 0.1 10^3/uL (0.0-0.3); EOSINOPHILS % (AUTO) 3 % (0-10); HEMATOCRIT 44 % (40-54); LYMPHOCYTES # (AUTO) 1.9 X 10^3 (1.0-4.0); LYMPHOCYTES % (AUTO) 36 % (12-44); MEAN CORPUSCULAR HEMOGLOBIN 32 PG (25-34); MEAN CORPUSCULAR HGB CONC 34 G/DL (32-36); MEAN CORPUSCULAR VOLUME 94 FL (80-99); MONOCYTES # (AUTO) 0.5 X 10^3 (0.0-1.0); MONOCYTES % (AUTO) 9 % (0-12); NEUTROPHILS # (AUTO) 2.7 X 10^3 (1.8-7.8); NEUTROPHILS % (AUTO) 52 % (42-75); PLATELET COUNT 323 10^3/uL (130-400); RED CELL DISTRIBUTION WIDTH 13.1 % (10.0-14.5); WHITE BLOOD COUNT 5.3 10^3/uL (4.3-11.0)
[2019-06-22 02:59] LABS: AMPHETAMINE SCREEN, URINE NEGATIVE (NEGATIVE); BARBITURATE SCREEN URINE NEGATIVE (NEGATIVE); BENZODIAZEPINES SCREEN URINE NEGATIVE (NEGATIVE); CANNABINOID SCREEN, URINE NEGATIVE (NEGATIVE); COCAINE SCREEN URINE NEGATIVE (NEGATIVE); METHADONE STAT NEGATIVE (NEGATIVE); METHAMPHETAMINE SCREEN URINE S NEGATIVE (NEGATIVE); OPIATE SCREEN URINE NEGATIVE (NEGATIVE); OXYCODONE STAT NEGATIVE (NEGATIVE); PROPOXYPHENE STAT NEGATIVE (NEGATIVE); TRICYCLIC ANTIDEPRESSANTS SCRE NEGATIVE (NEGATIVE)
[2019-06-22 03:00] LABS: BACTERIA,URINE NEGATIVE /HPF; SQUAMOUS EPITHELIAL CELL,UR RARE /HPF
[2019-06-22 03:18] LABS: ALANINE AMINOTRANSFERASE 31 U/L (0-55); ALBUMIN 4.8 GM/DL (3.2-4.5); ALKALINE PHOSPHATASE 95 U/L (40-136); BILIRUBIN,TOTAL 0.2 MG/DL (0.1-1.0); BUN/CREATININE RATIO 6; CALCIUM 9.6 MG/DL (8.5-10.1); CARBON DIOXIDE 20 MMOL/L (21-32); CHLORIDE 106 MMOL/L (98-107); CREATININE SERUM 1.26 MG/DL (0.60-1.30); GFR ESTIMATED > 60; GLUCOSE 130 MG/DL (70-105); POTASSIUM 3.5 MMOL/L (3.6-5.0); SALICYLATE < 5.0 MG/DL (5.0-20.0); SODIUM 141 MMOL/L (135-145); TOTAL PROTEIN 8.2 GM/DL (6.4-8.2)
[2019-06-22 03:20] LABS: ACETAMINOPHEN < 10 UG/ML (10-30)
--- NOTE | 2019-06-22 04:10 | ED Psychosocial ---
General Chief Complaint: Substance Abuse Stated Complaint: OVERDOSE Nursing Triage Note: PT ARRIVES TO THE ED VIA EMS, FAMILY FRIEND CONTACTED EMS AFTER THE PT WAS REPORTED TO HAVE BEEN FOUND [facility] SLURRING HIS WORDS AND ENTERING ALTERED LOC AFTER CONSUMING A REPORTED 16 BEERS AND FIVE OF HIS 10MG PAXIL MEDS HE IS PRESCRIBED FOR DEPRESSION. PT STATES HE DID NOT WANT TO COMMIT SUICIDE OR SELF HARM, JUST BECAME FED UP WITH THE SITUATION AT HIS HOME AND WANTED A WAY TO SLEEP THROUGH THE NIGHT. Source: patient, EMS History of Present Illness Date Seen by Provider: Jun 22, 2019 Time Seen by Provider: 02:35 Initial Comments PT ARRIVES VIA EMS FROM HOME--WALKS INTO ER FROM AMBULANCE WITH MINIMAL ASSIST FROM EMS PT STATES HE TOOK 5 PAXIL 10 MG TONIGHT AROUND 2100 ( HAD TOLD EMS THAT HE TOOK THEM AROUND 0100 ) PT HAS ALSO HAD 14-16 BEERS TONIGHT, STARTED DRINKING AROUND 1745 TONIGHT--PT DRINKS AT LEAST A 12 PACK OF BEER A DAY, AND HAS DRANK IN EXCESS OF A 30 PACK OF BEER A DAY IN THE PAST--CONSIDERS A 12 PACK "NOT MUCH AT ALL" PT HAS ADAMANTLY DENIED TO MYSELF, EMS AND RN THAT HE WAS TRYING TO HARM HIMSELF, AND STATES REPEATEDLY THAT HE "WAS JUST TRYING TO CALM DOWN AND GO TO SLEEP" EMS REPORT THAT PT DID FALL ASLEEP EN ROUTE, AND IS MUCH DROWSIER AND HAVING SOME SLURRED SPEECH THAT WAS NOT PRESENT AT THE SCENE. STATES LIVE-IN GIRLFRIEND WAS AT WORK TONIGHT, AND THEIR 3 CHILDREN WERE ALREADY IN BED. PT STATES THAT SOME FRIENDS WERE AT HIS HOUSE AND STATES "FRIENDS LEFT AND I JUST WENT AHEAD AND TOOK THEM" STATES "I WAS JUST TRYING TO ENJOY MY NIGHT WITH FRIENDS AND IT WAS DEPRESSING" PT APPARENTLY SENT A TEXT TO A FRIEND, AND TOLD HIM WHAT HE HAD DONE, AND FRIEND CALLED EMS TO DO A WELL BEING CHECK ON PT. PT DID NOT VOICE ANY SUICIDAL THOUGHTS TO FRIEND, ACCORDING TO EMS. [place] [employer]ICE WERE AT THE SCENE WELL, DUE TO 3 CHILDREN AT HOME WITH THEIR MOTHER AT WORK AND HAD NOT BEEN ABLE TO CONTACT HER. GIRLFRIEND EVENTUALLY ANSWERED HER PHONE, AND CAME HOME TO BE WITH CHILDREN. STATES HE IS HAVING "RELATIONSHIP PROBLEMS" ( WAS REPORTED TO EMS BY GIRLFRIEND THAT SHE HAD ASKED HIM TO MOVE OUT, AND THAT HE NEEDED TO BE GONE BY SATURDAY, WAS ALSO REPORTED THAT THERE ARE ALOT OF ONGOING FINANCIAL ISSUES, ETC, WITH THEM WELL ) PT ADMITS THAT HE HAS ATTEMPTED SUICIDE IN THE PAST--HAS OVERDOSED ON HYDROCODONE AND XANAX IN THE PAST--BUT HAS NEVER BEEN ADMITTED TO AN INPATIENT PSYCHIATRIC FACILITY. PT DOES NOT SEE ANYONE FOR MENTAL HEALTH--GETS PRESCRIPTIONS FOR PAXIL FROM DR. ORTIZ. [facility] Allergies and Home Medications Allergies Coded Allergies: No Known Drug Allergies (Unverified , 12/01/18) Home Medications Albuterol Sulfate 18 Gm Hfa.aer.ad, 2 PUFF INH Q6H PRN for SHORTNESS OF BREATH Prescribed by: KANG HUTCHINSON on 12/01/181929 Omeprazole 20 Mg Capsule.dr, 20 MG PO DAILY Prescribed by: JESSIE PHELPS on 08/15/17138 Ondansetron 8 Mg Tab.rapdis, 8 MG PO Q6H Prescribed by: BIBI ELISE on 06/22/19538 Oseltamivir Phosphate 75 Mg Capsule, 75 MG PO BID Prescribed by: KANG HUTCHINSON on 12/01/181929 Pantoprazole Sodium 40 Mg Tablet.dr, 40 MG PO DAILY Prescribed by: BIBI ELISE on 06/22/19538 Prednisone 20 Mg Tab, 40 MG PO DAILY Prescribed by: KANG HUTCHINSON on 12/01/181929 Promethazine HCl 25 Mg Tablet, 25 MG PO Q6H PRN for NAUSEA/VOMITING Prescribed by: JESSIE PHELPS on 11/16/1757 Sucralfate 1 Gm Tablet, 1 GM PO QIDACHS Prescribed by: EJSSIE PHELPS on 08/15/17138 Patient Home Medication List Home Medication List Reviewed: Yes Review of Systems Constitutional: no symptoms reported Respiratory: no symptoms reported Cardiovascular: no symptoms reported Gastrointestinal: no symptoms reported Genitourinary: no symptoms reported Musculoskeletal: no symptoms reported Skin: no symptoms reported Psychiatric/Neurological: See HPI Past Zrbxldx-Fcgdol-Qcgbma Hx Past Med/Social Hx: Reviewed and Corrections made Patient Social History Alcohol Use: Regular Use (30 PACK OF BEER AT DAY BY HISTORY, NOW CLAIMS AROUND A 12 PACK A DAY, PER PT 06/22/19) Alcohol Beverage of Choice: Beer Recreational Drug Use: Yes (ABUSE AND INTENTIONAL OVERDOSES OF HYDROCODONE AND XANAX) Drug of Choice: ABUSE AND OVERDOSES OF XANAX AND HYDROCODONE Smoking Status: Former Smoker (QUIT SEVERAL YEARS AGO) Type Used: Cigarettes 2nd Hand Smoke Exposure: No Contact w/Someone Who Travel: No Recent Infectious Disease Expo: No Recent Hopitalizations: No Immunizations Up To Date Tetanus Booster (TDap): Unknown PED Vaccines UTD: Yes Date of Influenza Vaccine: Nov 08, 2017 Seasonal Allergies Seasonal Allergies: No Past Medical History Surgeries: Yes (RIGHT NECK LYMPH NODE REMOVED AT AGE 3; EGD/ESOPHAGEAL DILATION) Respiratory: No Cardiac: No Neurological: No Reproductive Disorders: No HIV/AIDS: No Genitourinary: No Gastrointestinal: Yes (ESOPHAGEAL STRICTURE) Gastroesophageal Reflux Musculoskeletal: Yes Chronic Back Pain Endocrine: No HEENT: No Loss of Vision: Bilateral Hearing Impairment: Denies Cancer: No Psychosocial: Yes (HX OF DEPRESSION' SUICIDE ATTEMPTS --OVERDOSED ON HYDROCODONE AND XANAX; POLYSUBSTANCE ABUSE. ) Sleep Difficulties, Anxiety, Suicide Attempts, Depression Integumentary: No Blood Disorders: No Adverse Reaction/Blood Tranf: No Family Medical History History of drug abuse 03 FATHER 09 BROTHER No Pertinent Family Hx Physical Exam Vital Signs - First Documented 06/22/19 02:36 Temp 98.0 Pulse 86 Resp 18 B/P (MAP) 175/99 (124) Pulse Ox 96 O2 Delivery Room Air Capillary Refill : Less Than 3 Seconds Height, Weight, BMI Height: 6'0" Weight: 181lbs. 0.0oz. 82.903706ze; 22.4 BMI Method:Stated General Appearance: WD/WN, no apparent distress, other (AMBULATES IN WITH SLIGHTLY UNSTEADY GAIT, APPEARS SOMEWHAT DROWSY, AND SPEECH IS SLIGHTLY SLURRED. DIRTY/UNKEMPT) HEENT: PERRL/EOMI Respiratory: normal breath sounds, no respiratory distress, no accessory muscle use Cardiovascular: regular rate, rhythm, no murmur Gastrointestinal: non tender, soft Extremities: normal inspection, normal capillary refill, other (NO EXTERNAL EVIDENCE OF TRAUMA) Neurologic/Psychiatric: paster hat lining II-XII nml as tested, no motor/sensory deficits, alert, oriented x 3 Appearance/Memory: no memory impairment, disheveled Behavior/Eye Contact: cooperative, good eye contact Thoughts/Hallucinations: no apparent hallucination Skin: normal color, warm/dry Progress/Results/Core Measures Results/Orders Lab Results My Orders Medications Given in ED Vital Signs/I&O Blood Pressure Mean: 124 Progress Progress Note : Progress Note NO DETERIORATION IN PT'S CONDITION THE AMOUNT OF PAXIL THAT HE REPORTEDLY TOOK IS A NON-TOXIC DOSE, AND PT REPEATEDLY HAS DENIED ANY SUICIDAL THOUGHTS OR ATTEMPT TO MYSELF, NURSING STAFF, AND EMS, WILL OBSERVE IN ER AND GIVE IV FLUIDS UNTIL HE IS SOBER. OBSERVED FOR OVER 3 HOURS, AND PT SLEPT FOR ENTIRE ER STAY, VERY EASILY AWAKENS AND TALKS/ RESPONDS APPROPRIATELY, THEN GOES BACK TO SLEEP. SPEECH IS NO LONGER SLURRED AT TIME OF DISMISSAL VITALS REMAINED STABLE. JUST PT WAS BEING READIED FOR DISMISSAL, HE DID BEGIN TO HAVE NAUSEA AND VOMITED/DRY HEAVES--GIVEN ZOFRAN WITH IMPROVEMENT IN SYMPTOMS ADVISED THAT PT [facility], AND HE IS AGREEABLE TO THIS PLAN Initial ECG Impression Date: Jun 22, 2019 Initial ECG Impression Time: 02:39 Initial ECG Rate: 94 Initial ECG Rhythm: Normal Sinus (PAC'S ) Departure Impression Primary Impression: NON-TOXIC OVERDOSE OF PAXIL Additional Impressions: Alcohol intoxication in active alcoholic Situational mixed anxiety and depressive disorder Disposition: 01 HOME, SELF-CARE Condition: Improved Departure-Patient Inst. Referrals: AKIRA ESPINOZA MD (PCP/Family) Primary Care Physician Patient Instructions: ALCOHOL AND SUBSTANCE ABUSE, Anxiety, Adult (DC), Depression, Adult (DC) Add. Discharge Instructions: HOME, REST LOTS OF CLEAR LIQUIDS--WATER, BROTH, JELLO, GATORADE NO ALCOHOL!!! NO DRUGS!!! FOLLOW UP WITH [facility] FOR OUTPATIENT SUBSTANCE ABUSE TREATMENT FOLLOW [facility] WITH [facility] FOR DEPRESSION AND ANXIETY ISSUES All discharge instructions reviewed with patient and/or family. Voiced understanding. Scripts Pantoprazole Sodium (Protonix) 40 Mg Tablet. 40 MG PO DAILY, #15 TAB Prov: BIBI ELISE DO 06/22/19 Ondansetron (Ondansetron Odt) 8 Mg Tab.rapdis 8 MG PO Q6H for Nausea/Vomiting, #10 TAB Prov: BIBI ELISE DO 06/22/19 BIBI ELISE DO Jun 22, 2019 04:10
[2019-06-22] MEDS ORDERED: ONDANSETRON 4 MG/2 ML (SDV) Z0FRAN ONE (05:27)
[2019-06-22] MEDS ORDERED: PANT40TA2 PO (05:39)
[2019-06-22] MEDS ORDERED: ONDA8TAB13 PO (05:39)
[2019-06-22] MEDS ORDERED: ONDANSETRON 4 MG/2 ML (SDV) Z0FRAN IVP ONE (05:45)
[2019-06-22] MEDS ORDERED: PANTOPRAZOLE 40 MG (PROTONIX) VIAL IV ONE (05:45)
[2019-06-22 06:09] VITALS: BP 145/87
== END 2019-06-22 06:14 | disposition home or self-care (01) ==
LOC: EDUNIT# 02:36 → ER 02:38
DX: T43.292A Poisoning by other antidepressants, intentional self-harm, initial encounter (principal); F10.229 Alcohol dependence with intoxication, unspecified; F41.8 Other specified anxiety disorders; F32.9 Major depressive disorder, single episode, unspecified; F15.10 Other stimulant abuse, uncomplicated; K21.9 Gastro-esophageal reflux disease without esophagitis; Z87.891 Personal history of nicotine dependence; Y90.6 Blood alcohol level of 120-199 mg/100 ml
CPT/HCPCS: 36415; 80053; 80306; 80320; 80329; 81000; 83735; 85025; 93005; 93041; 96361; 96374; 96375

== ENCOUNTER 2019-11-28 10:44 | Emergency (ER) | payer BC ==
[~2019-11-28] VITALS: Ht 185.5 cm; Wt 84.1 kg
[~2019-11-28 10:44] MED LIST changes: +PANT40TA2 PO; -TRAM50TA2 PO
--- NOTE | 2019-11-28 11:23 | ED Lower Extremity ---
General Chief Complaint: Lower Extremity Stated Complaint: L FOOT PAIN Source: patient Exam Limitations: no limitations History of Present Illness Date Seen by Provider: Nov 28, 2019 Time Seen by Provider: 11:21 Initial Comments To ER with reports of left heel pain. This began yesterday when he jumped out of a tree at home. He didn't have a ladder so he climbed up to treat cutdown N, he jumped down landing on his feet but states that he landed wrong. He is able to bear weight on the left foot but only if he walks on his forefoot on the left side. Unable to bear weight on the heel. No right heel pain and no low back pain. No other injury. Onset: yesterday Severity: moderate Pain/Injury Location: left foot, left heel Method of Injury: fell (jumped out of tree) Modifying Factors: Worse With Movement Allergies and Home Medications Allergies Coded Allergies: No Known Drug Allergies (Unverified , 12/01/18) Home Medications Albuterol Sulfate 18 Gm Hfa.aer.ad, 2 PUFF INH Q6H PRN for SHORTNESS OF BREATH Prescribed by: KANG HUTCHINSON on 12/01/181929 Omeprazole 20 Mg Capsule.dr, 20 MG PO DAILY Prescribed by: JESSIE PHELPS on 08/15/17138 Ondansetron 8 Mg Tab.rapdis, 8 MG PO Q6H Prescribed by: BIBI ELISE on 06/22/19538 Oseltamivir Phosphate 75 Mg Capsule, 75 MG PO BID Prescribed by: KANG HUTCHINSON on 12/01/181929 Pantoprazole Sodium 40 Mg Tablet.dr, 40 MG PO DAILY Prescribed by: BIBI ELISE on 06/22/19538 Prednisone 20 Mg Tab, 40 MG PO DAILY Prescribed by: KANG HUTCHINSON on 12/01/181929 Promethazine HCl 25 Mg Tablet, 25 MG PO Q6H PRN for NAUSEA/VOMITING Prescribed by: JESSIE PHELPS on 11/16/17956 Sucralfate 1 Gm Tablet, 1 GM PO QIDACHS Prescribed by: JESSIE PHELPS on 08/15/17138 Patient Home Medication List Home Medication List Reviewed: Yes Review of Systems Constitutional: see HPI EENTM: see HPI Respiratory: no symptoms reported Cardiovascular: no symptoms reported Genitourinary: no symptoms reported Musculoskeletal: see HPI Skin: no symptoms reported Psychiatric/Neurological: No Symptoms Reported Past Ubibguf-Vufdht-Wbjfof Hx Patient Social History Alcohol Beverage of Choice: Beer Drug of Choice: ABUSE AND OVERDOSES OF XANAX AND HYDROCODONE Type Used: Cigarettes 2nd Hand Smoke Exposure: No Recent Foreign Travel: No Contact w/Someone Who Travel: No Recent Hopitalizations: No Immunizations Up To Date Tetanus Booster (TDap): Unknown PED Vaccines UTD: Yes Date of Influenza Vaccine: Nov 08, 2017 Seasonal Allergies Seasonal Allergies: No Past Medical History Surgeries: Yes (RIGHT NECK LYMPH NODE REMOVED AT AGE 3; EGD/ESOPHAGEAL DILATION) Respiratory: No Cardiac: No Neurological: No Reproductive Disorders: No HIV/AIDS: No Genitourinary: No Gastrointestinal: Yes (ESOPHAGEAL STRICTURE) Gastroesophageal Reflux Musculoskeletal: Yes Chronic Back Pain Endocrine: No HEENT: No Loss of Vision: Bilateral Hearing Impairment: Denies Cancer: No Psychosocial: Yes Sleep Difficulties, Anxiety, Suicide Attempts, Depression Integumentary: No Blood Disorders: No Adverse Reaction/Blood Tranf: No Family Medical History History of drug abuse 03 FATHER 09 BROTHER No Pertinent Family Hx Physical Exam Vital Signs Vital Signs - First Documented 11/28/19 11:16 Temp 36.5 Pulse 73 Resp 20 B/P (MAP) 136/73 (94) Pulse Ox 98 O2 Delivery Room Air Capillary Refill : Height, Weight, BMI Height: 6'0" Weight: 181lbs. 0.0oz. 82.836466ef; 22.4 BMI Method:Stated General Appearance: WD/WN, no apparent distress HEENT: PERRL/EOMI, normal ENT inspection Neck: non-tender, full range of motion Respiratory: no respiratory distress, no accessory muscle use Gastrointestinal: normal bowel sounds, non tender Hips: bilateral hip non-tender, bilateral hip normal inspection, bilateral hip normal range of motion Legs: bilateral leg non-tender, bilateral leg normal inspection, bilateral leg normal range of motion Knees: bilateral knee non-tender, bilateral knee normal inspection, bilateral knee normal range of motion Ankles: bilateral ankle non-tender, bilateral ankle normal inspection, bilateral ankle normal range of motion Feet: left foot pain, left foot soft tissue tenderness, left foot swelling, left foot other (bruising swelling and tenderness to the lateral aspect of the heel) Neurologic/Psychiatric: alert, normal mood/affect, oriented x 3 Skin: normal color, warm/dry Progress/Results/Core Measures Results/Orders My Orders Orders - NIKITA MONSON APRN Ankle, Left, 3 Views (11/28/19 11:20) Ct Extremity Lower Left Wo (11/28/19 12:05) Vital Signs/I&O 11/28/19 11:16 Temp 36.5 Pulse 73 Resp 20 B/P (MAP) 136/73 (94) Pulse Ox 98 O2 Delivery Room Air Diagnostic Imaging Diagonstic Imaging: Xray, CT Comments NAME: RAVINDRA DES[facility] REC#: [id number] PT STATUS: REG ER : 1985 PHYSICIAN: NIKITA MONSON APRN ADMIT DATE: 11/28/19/ER Signed Date of Exam:11/28/19 ANKLE, LEFT, 3 VIEWS INDICATION: Pain COMPARISON: None available. TECHNIQUE: Three radiographs of the left ankle dated November 28, 2019. FINDINGS: No acute fracture or dislocation. No destructive osseous process. The talar dome is unremarkable. The ankle mortise is symmetric. No suspicious radiopaque foreign body. IMPRESSION: No acute osseous abnormality. Dictated by: Dictated on workstation # [id number] Dict: 11/28/19 1156 Trans: 11/28/19 1202 [facility] [place] [id number] Interpreted by: ROCKY BOWMAN MD Electronically signed by: ROCKY BOWMAN MD 11/28/19 1202 Departure Communication (Admissions) Discussed with the patient that the x-ray is unremarkable however given the b ruising in the inability to bear weight we have to treatment options. One is to Rubén wrap the ankle, use crutches and no weightbearing until the pain is improved or we can proceed with a CT scan for further evaluation of the ankle today. He agrees with pursuing CT imaging. Impression Primary Impression: Sprain and strain of ankle Disposition: HOME, SELF-CARE Condition: Improved Departure-Patient Inst. Decision time for Depature: 12:37 Referrals: NO,LOCAL PHYSICIAN (PCP/Family) Primary Care Physician Patient Instructions: Ankle Sprain Add. Discharge Instructions: 1. Elevate the foot as much as possible. Ice pack for 30 minutes every 2-3 hours. Use crutches as needed until you're able to bear weight without pain. All discharge instructions reviewed with patient and/or family. Voiced understanding. Scripts Naproxen (Naprosyn) 500 Mg Tablet 500 MG PO BID PRN for PAIN-SEVERE (8-10), #30 TAB 0 Refills Prov: NIKITA MONSON APRN 11/28/19 NIKITA MONSON APRN Nov 28, 2019 11:23
--- NOTE | 2019-11-28 12:03 | Diagnostic Imaging Report ---
INDICATION: Pain COMPARISON: None available. TECHNIQUE: Three radiographs of the left ankle dated November 28, 2019. FINDINGS: No acute fracture or dislocation. No destructive osseous process. The talar dome is unremarkable. The ankle mortise is symmetric. No suspicious radiopaque foreign body. IMPRESSION: No acute osseous abnormality. Dictated by: Dictated on workstation # [id number]
[2019-11-28] MEDS ORDERED: NAPR-1071 PO (12:38)
--- NOTE | 2019-11-28 12:43 | Diagnostic Imaging Report ---
PROCEDURE: CT left lower extremity without contrast. TECHNIQUE: Multiple contiguous axial images were obtained through the left lower extremity without the use of intravenous contrast. Sagittal and coronal reformations were then performed. Auto Exposure Controls were utilized during the CT exam to meet ALARA standards for radiation dose reduction. INDICATION: Jumped out of a tree. Left heel pain The distal tibia and fibula are normal. The ankle joint is not widened. The talus and calcaneus are intact with no fractures. The mid tarsal bones are intact with no fracture. Proximal metatarsals are visualized with no fracture. There is mild edema of the heel with no soft tissue mass. IMPRESSION: No bony abnormality is seen. Dictated by: Dictated on workstation # [id number]
[2019-11-28 13:12] VITALS: BP 136/73
== END 2019-11-28 13:12 | disposition home or self-care (01) ==
LOC: EDUNIT# 10:44 → ER 10:45
DX: S93.402A Sprain of unspecified ligament of left ankle, initial encounter (principal); K21.9 Gastro-esophageal reflux disease without esophagitis; F41.9 Anxiety disorder, unspecified; F32.9 Major depressive disorder, single episode, unspecified; Z79.52 Long term (current) use of systemic steroids; W14.XXXA Fall from tree, initial encounter
CPT/HCPCS: 73610; 73700

== ENCOUNTER 2020-02-12 09:31 | Emergency (ER) | payer BC ==
[~2020-02-12] VITALS: Ht 180 cm; Wt 83.9 kg
[~2020-02-12 09:31] MED LIST changes: +NAPR-1071 PO; -OMEP20CA13 PO; +OMEP20CA18 PO
[2020-02-12] MEDS ORDERED: GUAI1TBM19 PO (10:33)
[2020-02-12] MEDS ORDERED: AMOX-358 PO (10:33)
[2020-02-12] MEDS ORDERED: LORA1TAB59 PO (10:33)
[2020-02-12] MEDS ORDERED: FLUT9.9S NS (10:33)
--- NOTE | 2020-02-12 10:34 | ED Cough/URI ---
General Chief Complaint: Cough/Cold/Flu Symptoms Stated Complaint: COUGH;RUNNY NOSE Nursing Triage Note: Pt to ED with c/o runny nose for approximately 3 weeks. Pt reports traveling to [place] on Saturday for work and then developed cough and nasal drainage Saturday, . Pt reports cough is productive with yellow mucous. Pt reports being sent to ED by [facility] for work note before pt is allowed to return to work. 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 STATES HE HAS HAD "A RUNNY NOSE AND A COUGH AND I'M FEELING WEAK" SINCE Saturday02/10/20 HAS HAD YELLOW SPUTUM NO FEVER AT ANY TIME NO CHEST PAIN NO SHORTNESS OF BREATH NO SORE THROAT NO HEADACHE NO BODY ACHES NO NAUSEA/VOMITING NO NECK PAIN OR STIFFNESS SYMPTOMS ARE NO DIFFERENT TODAY IN ANY WAY HAS NOT TAKEN ANYTHING FOR SYMPTOMS AT ANY TIME HAS NOT SOUGHT CARE UNTIL TODAY NO HISTORY OF ANY RESPIRATORY PROBLEMS NO KNOWN EXPOSURE TO FLU OR CORONAVIRUS, BUT IS CONCERNED THAT HE WAS EXPOSED TO CORONAVIRUS AND DIDN'T KNOW IT PT STATES HIS GIRLFRIEND AND 3 CHILDREN ARE NOT ILL STATES HE IS HERE FOR A WORK NOTE 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 PCP: [facility], DR. ORTIZ Allergies and Home Medications Allergies Coded Allergies: No Known Drug Allergies (Unverified , 12/01/18) Home Medications Albuterol Sulfate 18 Gm Hfa.aer.ad, 2 PUFF INH Q6H PRN for SHORTNESS OF BREATH Prescribed by: KANG HUTCHINSON on 12/01/181929 Amoxicillin/Potassium Clav 1 Each Tablet, 1 EACH PO BID Prescribed by: BIBI ELISE on 02/12/20 1033 Fluticasone Propionate 9.9 Ml [place].susp, 2 SPRAY NS DAILY 2 SPRAYS PER NOSTRIL DAILY X 2 DAYS THEN 1 SPRAY DAILY Prescribed by: BIBI ELISE on 02/12/20 1033 Guaifenesin/Dextromethorphan 1 Each Tbmp.12hr, 1 EACH PO BID Prescribed by: BIBI ELISE on 02/12/20 1033 Loratadine/Pseudoephedrine 1 Each Tab.er.12h, 1 EACH PO BID Prescribed by: BIBI ELISE on 02/12/20 1034 Naproxen 500 Mg Tablet, 500 MG PO BID PRN for PAIN-SEVERE (8-10) Prescribed by: NIKITA MONSON on 11/28/19 1238 Omeprazole 20 Mg Capsule.dr, 20 MG PO DAILY Prescribed by: JESSIE PHELPS on 08/15/17 013 Ondansetron 8 Mg Tab.rapdis, 8 MG PO Q6H Prescribed by: BIBI ELISE on 06/22/19538 Oseltamivir Phosphate 75 Mg Capsule, 75 MG PO BID Prescribed by: KANG HUTCHINSON on 12/01/181929 Pantoprazole Sodium 40 Mg Tablet.dr, 40 MG PO DAILY Prescribed by: BIBI ELISE on 06/22/19538 Prednisone 20 Mg Tab, 40 MG PO DAILY Prescribed by: KANG HUTCHINSON on 12/01/181929 Promethazine HCl 25 Mg Tablet, 25 MG PO Q6H PRN for NAUSEA/VOMITING Prescribed by: JESSIE PHELPS on 11/16/17 0957 Sucralfate 1 Gm Tablet, 1 GM PO QIDACHS Prescribed by: JESSIE PHELPS on 08/15/17 013 Patient Home Medication List Home Medication List Reviewed: Yes Review of Systems Review of Systems Constitutional: see HPI; No chills, No diaphoresis, No dizziness, No fever; malaise EENTM: see HPI, nose congestion; No ear pain, No throat pain Respiratory: cough; No dyspnea on exertion; phlegm; No short of breath, No wheezing Cardiovascular: no symptoms reported; No chest pain, No edema, No palpitations, No syncope Gastrointestinal: no symptoms reported; No abdominal pain, No diarrhea, No nausea, No vomiting Genitourinary: no symptoms reported Musculoskeletal: no symptoms reported; No back pain, No muscle pain, No neck pain Skin: no symptoms reported; No rash Psychiatric/Neurological: No Symptoms Reported; Denies Headache Hematologic/Lymphatic: No Symptoms Reported Immunological/Allergic: no symptoms reported Past Blobdnc-Euskhf-Yzbbva Hx Past Med/Social Hx: Reviewed and Corrections made Patient Social History Alcohol Use: Occasionally Uses Alcohol Beverage of Choice: Beer 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 Smoking Status: Never a Smoker 2nd Hand Smoke Exposure: No Recent Foreign Travel: No Contact w/Someone Who Travel: No Recent Infectious Disease Expo: No Recent Hopitalizations: No Immunizations Up To Date Tetanus Booster (TDap): Unknown PED Vaccines UTD: Yes Date of Influenza Vaccine: Nov 08, 2017 Seasonal Allergies Seasonal Allergies: No Past Medical History Surgeries: Yes (RIGHT NECK LYMPH NODE REMOVED AT AGE 3; EGD/ESOPHAGEAL DILATION) Respiratory: No Cardiac: No Neurological: No Reproductive Disorders: No Sexually Transmitted Disease: No HIV/AIDS: No Genitourinary: No Gastrointestinal: Yes (ESOPHAGEAL STRICTURE) Gastroesophageal Reflux Musculoskeletal: Yes Chronic Back Pain Endocrine: No HEENT: No Loss of Vision: Bilateral Hearing Impairment: Denies Cancer: No 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 0.0oz. 82.299105fi; 25.00 BMI Method:Stated General Appearance: WD/WN, no apparent distress, thin, other (DOES NOT APPEAR ILL, NO COUGH NOTED AT ANY TIME. ) HEENT: PERRL/EOMI, TMs normal, pharynx normal, other (NASAL CONGESTION AND CLEAR RHINORRHEA. 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 tested, no motor/sensory deficits, alert, normal mood/affect, oriented x 3 Skin: normal color, warm/dry; No rash; tattoos/piercings Progress/Results/Core Measures Suspected Sepsis Recent Fever Within 48 Hours: No Infection Criteria Present: None New/Unexplained Altered Menta: No Sepsis Screen: No Definite Risk SIRS Temperature: Pulse: 88 Respiratory Rate: 18 Blood Pressure 147 /102 Mean: 117 Results/Orders Lab Results Laboratory Tests Test 02/12/20 09:45 Range/Units Group A Streptococcus Screen NEGATIVE NEGATIVE Micro Results Microbiology 02/12/20 Influenza Types A,B Antigen (JAM) - Final, Complete My Orders Orders - BIBI ELISE DO Influenza A And B Antigens (02/12/20 09:37) Rapid Strep A Screen (02/12/20 10:04) Vital Signs/I&O 02/12/20 02/12/20 09:37 10:43 Temp 36.7 36.7 Pulse 88 70 Resp 18 18 B/P (MAP) 147/102 (117) 125/84 (117) Pulse Ox 99 97 O2 Delivery Room Air Room Air Capillary Refill : Less Than 3 Seconds Blood Pressure Mean: 117 Progress Note : Progress Note NO COUGH AT ANY TIME VITALS STABLE AND NO FEVER PT DOES NOT MEET CURRENT CRITERIA FOR CORONAVIRUS TESTING ADVISED PT TO SELF-QUARANTINE HIMSELF AND ALL HOUSEHOLD MEMBERS FOR THE NEXT 2 WEEKS Departure Impression Primary Impression: Sinusitis Disposition: 01 HOME, SELF-CARE Condition: Stable Departure-Patient Inst. Referrals: NIMESH ORTIZ MD (PCP/Family) Primary Care Physician Patient Instructions: Sinusitis, Adult (DC) Add. Discharge Instructions: HOME, REST LOTS OF CLEAR LIQUIDS TYLENOL AND MOTRIN NEEDED FOR PAIN OR FEVER FOLLOW UP WITH YOUR DR IN 1 WEEK IF NO BETTER SELF QUARANTINE YOURSELF AND ALL HOUSEHOLD MEMBERS FOR THE NEXT 2 WEEKS All discharge instructions reviewed with patient and/or family. Voiced understanding. Scripts Guaifenesin/Dextromethorphan (Mucinex Dm ER 1,200-60 mg Tab) 1 Each Tbmp.12hr 1 EACH PO BID, #20 EA Prov: BIBI ELISE DO 02/12/20 Fluticasone Propionate (Flonase Allergy Relief) 9.9 Ml [place].susp 2 SPRAY NS DAILY, #1 EACH 2 SPRAYS PER NOSTRIL DAILY X 2 DAYS THEN 1 SPRAY DAILY Prov: BIBI ELISE DO 02/12/20 Loratadine/Pseudoephedrine (Claritin-D 12 Hour Tablet) 1 Each Tab.er.12h 1 EACH PO BID, #20 TAB Prov: BIBI ELISE DO 02/12/20 Amoxicillin/Potassium Clav (Augmentin 875-125 Tablet) 1 Each Tablet 1 EACH PO BID, #14 TAB 0 Refills Prov: BIBI ELISE DO 02/12/20 Work/School Note: Work Release Form Date Seen in the Emergency Department: Feb 12, 2020 Return to Work: Feb 26, 2020 BIBI ELISE DO Feb 12, 2020 10:34
[2020-02-12 10:43] VITALS: BP 125/84
== END 2020-02-12 10:40 | disposition home or self-care (01) ==
LOC: EDUNIT# 09:31 → ER 09:32
DX: J32.9 Chronic sinusitis, unspecified (principal); K21.9 Gastro-esophageal reflux disease without esophagitis
CPT/HCPCS: 87430; 87804

== ENCOUNTER 2022-07-25 06:23 | Outpatient (CLI) | payer BC ==
[~2022-07-25] VITALS: Ht 180.3 cm; Wt 82.5 kg
[~2022-07-25 06:23] MED LIST changes: +AMOX-358 PO; -CIPR500T4 PO; +CIPR500T5 PO; +CYCL10TA25 PO; +FLUT9.9S NS; +GUAI1TBM19 PO; +LORA1TAB59 PO
[2022-07-25] MEDS ORDERED: SERT-414 PO (09:36)
== END 2022-07-25 09:45 | disposition home or self-care (01) ==
LOC: PREOP 06:23
PROVIDERS: ATTEND Surgery
DX: Z01.818 Encounter for other preprocedural examination (principal)

== ENCOUNTER 2022-08-03 11:54 | Day surgery (SDC) | payer BC ==
[~2022-08-03] VITALS: Ht 180.3 cm; Wt 82.5 kg
[~2022-08-03 11:54] MED LIST changes: +SERT-414 PO
[2022-08-03] MEDS ORDERED: LACTATED RINGERS 1,000 ML IV STA (12:06)
[2022-08-03] MEDS ORDERED: HURRICAINE EXT TUBE (BENZOCAINE) XX PRN (12:15)
[2022-08-03 12:18] VITALS: BP 135/90
--- NOTE | 2022-08-03 12:22 | Progress Note-Pre Operative ---
Pre-Operative Progress Note Date of Available H&P: Aug 20, 2022 Date H&P Reviewed: Aug 03, 2022 Time H&P Reviewed: 12:21 History & Physical: H&P Reviewed, Patient Examed, No changes noted Pre-Operative Diagnosis: dysphagia, gerd TODD LEBLANC DO Aug 03, 2022 12:22
[2022-08-03] MEDS ORDERED: proPOfol 200 MG/20 ML (DIPRIVAN) VIAL IV ONE ×2 (13:10→13:49)
[2022-08-03] MEDS ORDERED: MIDAZOLAM 2 MG/2 ML (VERSED) VIAL ONE (13:10)
--- NOTE | 2022-08-03 13:56 | Progress Note-Post Operative ---
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
[2022-08-03 14:00] VITALS: BP 123/60
[2022-08-03 14:05] VITALS: BP 123/66
--- NOTE | 2022-08-03 14:05 | Anesthesia-General Post-Op ---
MAC Patient Condition Mental Status/LOC: Same as Preop Cardiovascular: Satisfactory Nausea/Vomiting: Absent Respiratory: Satisfactory Pain: Controlled Complications: Absent Post Op Complications Complications None Follow Up Care/Instructions Patient Instructions None needed. Anesthesiology Discharge Order Discharge Order Patient is doing well, no complaints, stable vital signs, no apparent adverse anesthesia problems. No complications reported per nursing. FATOU GREENBERG CRNA Aug 03, 2022 14:05
[2022-08-03 14:25] VITALS: BP 131/99
[2022-08-03] MEDS ORDERED: PANT40TA2 PO (15:00)
--- NOTE | 2022-08-03 15:00 | Discharge Inst-Simple/Standard ---
Discharge Inst-Standard Discharge Medications New, Converted or Re-Newed RX: Transmitted to Pharmacy Patient Instructions/Follow Up Plan of Care/Instructions/FU: 2-3 weeks Nilsa Activity as Tolerated: Yes Discharge Diet: Regular Diet TODD LEBLANC DO Aug 03, 2022 15:00
[2022-08-03 15:17] VITALS: BP 131/99
--- NOTE | 2022-08-03 23:07 | OPERATIVE REPORT ---
DATE OF SERVICE: 08/03/2022 PREOPERATIVE DIAGNOSES: Dysphagia, gastroesophageal reflux disease. POSTOPERATIVE DIAGNOSES: Moderate to large hiatal hernia, esophageal stricture, reflux esophagitis. PROCEDURE: EGD with biopsy. SURGEON: Todd Ash DO ANESTHESIA: Per GAS TORCH BRAZIER. ESTIMATED BLOOD LOSS: Scant. COMPLICATIONS: None. INDICATIONS: The patient is a 36-year-old male with dysphagia and GERD symptoms. He understands risks and benefits of procedure and wished to proceed. Consent was signed in the chart. DESCRIPTION OF PROCEDURE: The patient was taken to the endoscopy suite, placed in left lateral recumbent position. Timeout was performed. Scope was inserted in mouth, down the esophagus. Once the scope was down in the esophagus, the patient started coughing significantly, which a scope went down through the esophagus the distal portion where there was a stricture, which dilated and caused a little bit of bleeding. The scope was then continued to be advanced through the stomach and into the duodenum without difficulty. There were no polyps, masses or ulcerations within the duodenum. Scope was slowly retracted back into the stomach where it was further insufflated. No polyps, masses or ulcerations within the stomach. Biopsy of the antrum was obtained. Scope was retroflexed noting a moderate to large sized hiatal hernia and also a stricture present at the distal esophagus again noting some scant bleeding. Biopsies of the strictured area were obtained. Did not dilate this area due to the bleeding and with difficulty visualizing the area completely; therefore, slowly retracted back into the scope back noting no other pathology. The patient tolerated procedure well without any complications, taken to recovery room in stable condition. RECOMMENDATIONS: The patient will be on Protonix 40 mg daily and Carafate 1 gram four times a day. We will get an esophagram if he has not had it already. Further recommendations pending these results. Job ID: [id number] DocumentID: [id number] Dictated Date: 08/03/2022 13:58:59 Dermatology Teacher Date: 08/03/2022 23:06:34 Dictated By: TODD ASH DO
== END 2022-08-03 15:18 | disposition home or self-care (01) ==
LOC: ENDO 11:54
PROVIDERS: ATTEND Surgery
DX: K21.00 Gastro-esophageal reflux disease with esophagitis, without bleeding (principal); K44.9 Diaphragmatic hernia without obstruction or gangrene; K22.2 Esophageal obstruction

== ENCOUNTER 2022-11-16 11:51 | Emergency (ER) | payer OTHER, BC ==
[~2022-11-16] VITALS: Ht 180 cm; Wt 84.0 kg
--- NOTE | 2022-11-16 11:59 | ED General ---
General Chief Complaint: Exposure Stated Complaint: SYNCOPE | COLD EXPOSURE Source of Information: Patient Exam Limitations: No Limitations History of Present Illness Date Seen by Provider: Nov 16, 2022 Time Seen by Provider: 11:56 Initial Comments To ER by EMS with reports of a syncopal event. 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 He got very cold and went back inside and told them he felt lightheaded and "blacked out". This was witnessed by staff and he did not fall or hit his head. EMS reports stable vital signs and glucose. Patient states he did not eat breakfast this morning and was very cold. EMS noted shivering which continues here. Timing/Duration: 1 Hour Severity: Moderate Associated Systoms: Denies Symptoms Allergies and Home Medications Allergies Coded Allergies: No Known Drug Allergies (Unverified , 12/01/18) Patient Home Medication List Home Medication List Reviewed: Yes Pantoprazole Sodium (Protonix) 40 Mg Tablet.dr, 40 MG PO DAILY Prescribed by: TODD LEBLANC on 08/03/22 1500 Sertraline HCl (Sertraline HCl) 100 Mg Tablet, 100 MG PO DAILY, (Reported) Entered as Reported by: MADISON THOMPSON on 07/25/22 0936 Review of Systems Review of Systems Constitutional: see HPI EENTM: see HPI Respiratory: no symptoms reported Cardiovascular: no symptoms reported Genitourinary: no symptoms reported Musculoskeletal: no symptoms reported Skin: no symptoms reported Psychiatric/Neurological: No Symptoms Reported Hematologic/Lymphatic: No Symptoms Reported Immunological/Allergic: no symptoms reported Past Kliyugt-Tfzwxe-Rjdnee Hx Immunizations Up To Date Tetanus Booster (TDap): Unknown PED Vaccines UTD: Yes First/Initial COVID19 Vaccinat: 2020 Second COVID19 Vaccination Yousif: 2020 Third COVID19 Vaccination Date: 2020 Seasonal Allergies Seasonal Allergies: No Past Medical History Surgeries: Yes (RIGHT NECK LYMPH NODE REMOVED AT AGE 3; EGD/ESOPHAGEAL DILATION) Respiratory: No Cardiac: No Neurological: Yes Headaches /Migraines Reproductive Disorders: No Sexually Transmitted Disease: No HIV/AIDS: No Genitourinary: No Gastrointestinal: Yes (ESOPHAGEAL STRICTURE) Gastroesophageal Reflux Musculoskeletal: Yes Chronic Back Pain Endocrine: No HEENT: No Loss of Vision: Bilateral Hearing Impairment: Denies Cancer: No 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 0.0oz. 82.655921ll; 25.37 BMI Method:Stated General Appearance: No Apparent Distress, WD/WN, Anxious, Other (Alert and oriented GCS 15 no confusion vital stable) Eyes: Bilateral Eye Normal Inspection, Bilateral Eye PERRL, Bilateral Eye EOMI HEENT: PERRL/EOMI, TMs Normal Neck: Full Range of Motion, Normal Inspection Respiratory: No Accessory Muscle Use, No Respiratory Distress Cardiovascular: Regular Rate, Rhythm, Normal Peripheral Pulses Gastrointestinal: Normal Bowel Sounds, Non Tender, Soft Extremity: Normal Capillary Refill, Normal Inspection Neurologic/Psychiatric: Alert, Oriented x3 Skin: Normal Color, Warm/Dry Progress/Results/Core Measures Suspected Sepsis SIRS Temperature: Pulse: Respiratory Rate: Blood Pressure / Mean: Results/Orders My Orders Orders - NIKITA MONSON APRN General/Regular (11/16/22 Lunch) Vital Signs/I&O 11/16/22 11:57 Temp 36.0 Pulse 77 Resp 20 B/P (MAP) 154/89 (110) O2 Delivery Room Air Capillary Refill : Departure Communication (Admissions) 1301-feels better, has a headache. Ate a full lunch, vitals remained stable. Impression Primary Impression: Cold exposure Disposition: HOME, SELF-CARE Condition: Stable Departure-Patient Inst. Decision time for Depature: 13:01 Referrals: NIMESH ORTIZ MD (PCP/Family) Primary Care Physician Patient Instructions: Hypothermia NIKITA MONSON APRN Nov 16, 2022 11:59
[2022-11-16 13:03] VITALS: BP 150/106
== END 2022-11-16 13:12 | disposition home or self-care (01) ==
LOC: EDUNIT# 11:51 → ER 11:53
DX: R51.9 Headache, unspecified (principal); X31.XXXA Exposure to excessive natural cold, initial encounter
CPT/HCPCS: 99283

== ENCOUNTER 2022-12-27 07:53 | Emergency (ER) | payer BC ==
[~2022-12-27] VITALS: Ht 180 cm; Wt 83.4 kg
[2022-12-27] MEDS ORDERED: KETOROLAC 30 MG/ML VIAL IVP STA (08:15)
[2022-12-27] MEDS ORDERED: NS IV 1000 ML 1,000 ML IV STA (08:15)
--- NOTE | 2022-12-27 08:15 | ED EENT ---
History of Present Illness General Chief Complaint: Oral/Throat Problems Stated Complaint: SORE THROAT | HEADACHE History of Present Illness Date Seen by Provider: Dec 27, 2022 Time Seen by Provider: 08:15 Initial Comments 37-year-old male presents with sore throat. Patient was seen yesterday at the clinic tested negative for strep, influenza and COVID. He was prescribed cefdinir. Patient reports that he just cannot swallow due to the pain and feels like he cannot take any meds or keeping them down. Feels like maybe there is swollen in his throat. Patient has a mild headache no cough, fever reported. Allergies and Home Medications Allergies Coded Allergies: No Known Drug Allergies (Unverified , 12/01/18) Patient Home Medication List Home Medication List Reviewed: Yes Pantoprazole Sodium (Protonix) 40 Mg Tablet.dr, 40 MG PO DAILY Prescribed by: TODD LEBLANC on 08/03/22 1500 Last Action: Last Taken Edited Sertraline HCl (Sertraline HCl) 100 Mg Tablet, 100 MG PO DAILY, (Reported) Entered as Reported by: MADISON THOMPSON on 07/25/22 0936 Last Action: Last Taken Edited Review of Systems Review of Systems Constitutional: No chills, No fever Ears: Denies Dizziness Throat: pain, painful swallowing Respiratory: No cough Cardiovascular: No chest pain Gastrointestinal: No abdominal pain, No nausea, No vomiting Past [id number] Hx Immunizations Up To Date Tetanus Booster (TDap): Unknown PED Vaccines UTD: Yes First/Initial COVID19 Vaccinat: 2020 Second COVID19 Vaccination Yousif: 2020 Third COVID19 Vaccination Date: 2020 Seasonal Allergies Seasonal Allergies: No Past Medical History Surgery/Hospitalization HX: THROAT SURGERY Surgeries: Yes (RIGHT NECK LYMPH NODE REMOVED AT AGE 3; EGD/ESOPHAGEAL DILATION) Respiratory: No Cardiac: No Neurological: Yes Headaches /Migraines Reproductive Disorders: No Sexually Transmitted Disease: No HIV/AIDS: No Genitourinary: No Gastrointestinal: Yes (ESOPHAGEAL STRICTURE) Gastroesophageal Reflux Musculoskeletal: Yes Chronic Back Pain Endocrine: No HEENT: No Loss of Vision: Bilateral Hearing Impairment: Denies Cancer: No Psychosocial: Yes (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 0.0oz. 82.763557gr; 25.00 BMI Method:Stated General Appearance: WD/WN, no apparent distress Eyes: bilateral eye normal inspection, bilateral eye PERRL Mouth/Throat: pharynx normal; No tongue swollen Neck: full range of motion, supple Cardiovascular: normal peripheral pulses, regular rate, rhythm Respiratory: lungs clear, normal breath sounds, no respiratory distress, no accessory muscle use Gastrointestinal: non tender, soft Neurologic/Psychiatric: alert, normal mood/affect, oriented x 3 Skin: normal color, warm/dry Progress/Results/Core Measures Results/Orders Lab Results Laboratory Tests Test 12/27/22 08:24 Range/Units White Blood Count 8.2 4.3-11.0 10^3/uL Red Blood Count 4.45 4.30-5.52 10^6/uL Hemoglobin 14.5 13.3-17.7 g/dL Hematocrit 43 40-54 % Mean Corpuscular Volume 96 80-99 fL Mean Corpuscular Hemoglobin 33 25-34 pg Mean Corpuscular Hemoglobin Concent 34 32-36 g/dL Red Cell Distribution Width 13.2 10.0-14.5 % Platelet Count 288 130-400 10^3/uL Mean Platelet Volume 9.2 9.0-12.2 fL Immature Granulocyte % (Auto) 1 % Neutrophils (%) (Auto) 66 42-75 % Lymphocytes (%) (Auto) 21 12-44 % Monocytes (%) (Auto) 11 0-12 % Eosinophils (%) (Auto) 2 0-10 % Basophils (%) (Auto) 1 0-10 % Neutrophils # (Auto) 5.4 1.8-7.8 10^3/uL Lymphocytes # (Auto) 1.7 1.0-4.0 10^3/uL Monocytes # (Auto) 0.9 0.0-1.0 10^3/uL Eosinophils # (Auto) 0.1 0.0-0.3 10^3/uL Basophils # (Auto) 0.1 0.0-0.1 10^3/uL Immature Granulocyte # (Auto) 0.0 0.0-0.1 10^3/uL Sodium Level 141 135-145 MMOL/L Potassium Level 4.3 3.6-5.0 MMOL/L Chloride Level 105 98-107 MMOL/L Carbon Dioxide Level 25 21-32 MMOL/L Anion Gap 11 5-14 MMOL/L Blood Urea Nitrogen 15 7-18 MG/DL Creatinine 1.17 0.60-1.30 MG/DL Estimat Glomerular Filtration Rate 83 BUN/Creatinine Ratio 13 Glucose Level 112 H 70-105 MG/DL Lactic Acid Level 1.59 0.50-2.00 MMOL/L Calcium Level 9.3 8.5-10.1 MG/DL Corrected Calcium 9.1 8.5-10.1 MG/DL Total Bilirubin 0.4 0.1-1.0 MG/DL Aspartate Amino Transf (AST/SGOT) 36 H 5-34 U/L Alanine Aminotransferase (ALT/SGPT) 77 H 0-55 U/L Alkaline Phosphatase 98 40-136 U/L C-Reactive Protein High Sensitivity 3.53 H 0.00-0.50 MG/DL Total Protein 7.9 6.4-8.2 GM/DL Albumin 4.3 3.2-4.5 GM/DL My Orders Orders - BRENNAN,LIZZIE L DO Cbc With Automated Diff (12/27/22 08:15) Comprehensive Metabolic Panel (12/27/22 08:15) Hs C Reactive Protein (12/27/22 08:15) Lactic Acid Analyzer (12/27/22 08:15) Ct Neck (Soft Tissue) W (12/27/22 08:15) Ns Iv 1000 Ml (Sodium Chloride 0.9%) (12/27/22 08:15) Ketorolac Injection (Toradol Injection) (12/27/22 08:15) Iohexol Injection (Omnipaque 350 Mg/Ml 1 (12/27/22 08:30) Received Contrast (Hold Metformin- Contr (12/27/22 08:30) Ns (Ivpb) (Sodium Chloride 0.9% Ivpb Bag (12/27/22 08:30) Lidocaine 2% Viscous 15 Ml (Xylocaine Vi (12/27/22 09:45) Antacid Suspension (Mylanta Suspension (12/27/22 09:45) Medications Given in ED Current Medications Medications Dose Ordered Sig/Ingris Route Start Time Stop Time Status Last Admin Dose Admin Iohexol 75 ml ONCE ONCE IV 12/27/22 08:30 12/27/22 08:31 DC 12/27/22 08:58 75 ML Sodium Chloride 100 ml ONCE ONCE IV 12/27/22 08:30 12/27/22 08:31 DC 12/27/22 08:58 80 ML Vital Signs/I&O 12/27/22 08:00 Temp 36.9 Pulse 102 Resp 16 B/P (MAP) 142/96 (111) Pulse Ox 99 Progress Progress Note : Progress Note Patient's labs were reviewed and shows slight elevation of CRP otherwise normal labs. Patient CT was reviewed and showed no acute findings. Patient will be given a GI cocktail with some lidocaine to help with the discomfort in his throat. I discussed with him he can use Maalox swish and swallows. He should continue to take his antibiotic as prescribed and follow-up with his primary care provider. Patient shows no clinical signs of dehydration or no signs of dehydration or acute concerns on his labs Diagnostic Imaging Diagonstic Imaging: CT Plain Films/CT/US/NM/MRI: other Comments Date of Exam:12/27/22 CT NECK (SOFT TISSUE) W PROCEDURE: CT neck soft tissue with contrast. TECHNIQUE: Multiple contiguous axial images were obtained through the neck after the administration of contrast. Auto Exposure Controls were utilized during the CT exam to meet ALARA standards for radiation dose reduction. INDICATION: Throat pain. Inability to swallow. COMPARISON: None. FINDINGS: No significant edema or inflammatory changes seen in the pharynx or larynx. No findings suspicious for abscess. No lymphadenopathy. The floor of the mouth, tongue base, epiglottis and retropharyngeal space are normal. No suspicious mass or enhancement. The thyroid and major salivary glands are negative. Major vessels in the neck are grossly patent. The orbits are unremarkable. Mucosal thickening in the ethmoid and maxillary sinuses. The mastoids are clear. No acute osseous findings. Lung apices are clear. IMPRESSION: No acute CT findings in the neck. Specifically, no significant edema or inflammatory change about the pharynx or larynx. No findings suspicious for abscess. Reviewed: Reviewed by Me, Reviewed/Discussed Departure Impression Primary Impression: Pharyngitis Qualified Codes: J02.9 - Acute pharyngitis, unspecified Disposition: HOME, SELF-CARE Condition: Stable Departure-Patient Inst. Referrals: NIMESH ORTIZ MD (PCP/Family) Primary Care Physician Patient Instructions: Sore Throat, Adult (DC) Add. Discharge Instructions: You may use [id number] sore throat lozenges along with Maalox to help with the pain. Please take your antibiotics as prescribed. Follow-up with your primary care provider in 1 week All discharge instructions reviewed with patient and/or family. Voiced understanding. LIZZIE BRENNAN DO Dec 27, 2022 08:15
[2022-12-27] MEDS ORDERED: IOHEXOL 350 MG/ML 100 ML (OMNIPAQUE 350) VIAL IV ONE (08:30)
[2022-12-27] MEDS ORDERED: NS 100 ML (IVPB) BAG IV ONE (08:30)
[2022-12-27] MEDS ORDERED: HOLD METFORMIN - RECEIVED CONTRAST 20 ML VIAL IV SCH (08:30)
[2022-12-27 08:44] LABS: BASOPHILS # (AUTO) 0.1 10^3/uL (0.0-0.1); BASOPHILS % (AUTO) 1 % (0-10); EOSINOPHILS # (AUTO) 0.1 10^3/uL (0.0-0.3); EOSINOPHILS % (AUTO) 2 % (0-10); HEMATOCRIT 43 % (40-54); HEMOGLOBIN 14.5 g/dL (13.3-17.7); LYMPHOCYTES # (AUTO) 1.7 10^3/uL (1.0-4.0); LYMPHOCYTES % (AUTO) 21 % (12-44); MEAN CORPUSCULAR HEMOGLOBIN 33 pg (25-34); MEAN CORPUSCULAR HGB CONC 34 g/dL (32-36); MEAN CORPUSCULAR VOLUME 96 fL (80-99); MEAN PLATELET VOLUME 9.2 fL (9.0-12.2); MONOCYTES # (AUTO) 0.9 10^3/uL (0.0-1.0); MONOCYTES % (AUTO) 11 % (0-12); NEUTROPHILS # (AUTO) 5.4 10^3/uL (1.8-7.8); NEUTROPHILS % (AUTO) 66 % (42-75); PLATELET COUNT 288 10^3/uL (130-400); WHITE BLOOD COUNT 8.2 10^3/uL (4.3-11.0)
[2022-12-27 09:01] LABS: ALBUMIN 4.3 GM/DL (3.2-4.5); BILIRUBIN,TOTAL 0.4 MG/DL (0.1-1.0); CALCIUM 9.3 MG/DL (8.5-10.1); CREATININE SERUM 1.17 MG/DL (0.60-1.30); POTASSIUM 4.3 MMOL/L (3.6-5.0); TOTAL PROTEIN 7.9 GM/DL (6.4-8.2)
--- NOTE | 2022-12-27 09:29 | Diagnostic Imaging Report ---
PROCEDURE: CT neck soft tissue with contrast. TECHNIQUE: Multiple contiguous axial images were obtained through the neck after the administration of contrast. Auto Exposure Controls were utilized during the CT exam to meet ALARA standards for radiation dose reduction. INDICATION: Throat pain. Inability to swallow. COMPARISON: None. FINDINGS: No significant edema or inflammatory changes seen in the pharynx or larynx. No findings suspicious for abscess. No lymphadenopathy. The floor of the mouth, tongue base, epiglottis and retropharyngeal space are normal. No suspicious mass or enhancement. The thyroid and major salivary glands are negative. Major vessels in the neck are grossly patent. The orbits are unremarkable. Mucosal thickening in the ethmoid and maxillary sinuses. The mastoids are clear. No acute osseous findings. Lung apices are clear. IMPRESSION: No acute CT findings in the neck. Specifically, no significant edema or inflammatory change about the pharynx or larynx. No findings suspicious for abscess. Dictated by: Dictated on workstation # [id number]
[2022-12-27] MEDS ORDERED: LIDOCAINE 2% VISCOUS 15 ML UDC PO ONE (09:45)
[2022-12-27] MEDS ORDERED: ANTACID SUSP 30 ML UDC (MYLANTA) PO ONE (09:45)
[2022-12-27 10:00] VITALS: BP 126/88
== END 2022-12-27 10:00 | disposition home or self-care (01) ==
LOC: EDUNIT# 07:53 → ER 07:55
DX: J02.9 Acute pharyngitis, unspecified (principal)
CPT/HCPCS: 36415; 70491; 80053; 83605; 85025; 86141